=== PATIENT | female | born 1945 | race Caucasian/White ===

== ENCOUNTER 2016-07-18 07:35 | Observation (INO) ==
--- NOTE | 2016-07-18 07:43 | Emergency Department Note ---
Disposition Clinical Impression: Fracture of ankle, trimalleolar, left, closed Qualifiers: Encounter type: initial encounter Qualified Code(s): S82.852A - Displaced trimalleolar fracture of left lower leg, initial encounter for closed fracture Disposition: Admitted As Inpatient Condition: Fair Referrals: Aj Crane MD [Primary Care Provider] - Forms: ED Satisfaction Letter Time of Disposition: 09:08 Lower Extremity Injury HPI - General Chief Complaint: ED Fall Stated Complaint: Fall, Left Ankle Injury Source: patient Mode of arrival: EMS Limitations: no limitations - History of Present Illness HPI Narrative: 71-year-old alert and oriented female presents to emergency department with a chief complaint of left ankle injury. The patient states that just prior to arrival, she was walking to the house with her cup of coffee when she began to experience a "hot flash" and became "dizzy". The patient states that her ankle rolled in a lateral fashion and she fell to the floor. She was unable to bear weight immediately after the injury. The patient states that she has had these hot flashes/dizzy spells for many years. She states that this is not a new occurrence. She denies any other injury from the fall. She denies any LOC, nausea, vomiting, head injury. The patient arrives via EMS with a cardboard/ foam splint applied to the left lower extremity. 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 Mechanism of Injury: eversion Context: fall Place: home Pain Severity: moderate Pain Scale: 6 Improves with: nothing Worsens with: weight bearing, movement, palpation Associated symptoms: Reports: unable to bear weight, swelling Treatments prior to arrival: splint (Per EMS) - Related Data Home Medications Medication Instructions Recorded Confirmed Ascorbate Calcium [Vitamin C] 500 mg PO DAILY 07/17/16 07/18/16 Aspirin 81 mg PO DAILY 07/17/16 07/18/16 Calcium Carbonate/Vitamin D3 1 each PO DAILY 07/17/16 07/18/16 [Calcium 500-Vit D3 600 Tablet] Cholecalciferol (Vitamin D3) 1,000 unit PO BID 07/17/16 07/18/16 [Vitamin D] Cyanocobalamin (Vitamin B-12) 1,000 mcg PO DAILY 07/17/16 07/18/16 [Vitamin B12] Folic Acid 1 mg PO DAILY 07/17/16 07/18/16 Glucosamine/Chondroitin A/MSM 1 each PO TID 07/17/16 07/18/16 [Gsruaucveau-Idlahkuqn-WBK Cap] Ibuprofen [Advil] 400 mg PO Q6H PRN 07/17/16 07/18/16 Levothyroxine [Synthroid] 75 mcg PO QAM 07/17/16 07/18/16 Losartan/HCTZ [Hyzaar 50-12.5 1 each PO DAILY 07/17/16 07/18/16 Tablet] Methotrexate [Otrexup] 7.5 mg PO QWEEK 07/17/16 07/18/16 [place]-3/Dha/Epa/Fish Oil [[place]-3 1,000 mg PO DAILY 07/17/16 07/18/16 Fish Oil 1,000 mg Sfgl] Previous Rx's Medication Instructions Recorded OxyCODONE/APAP 5/325 [Percocet 2 each PO Q6HR PRN #20 tablet 07/17/16 5/325 MG] Allergies Allergy/AdvReac Type Severity Reaction Status Date / Time No Known Allergies Allergy Verified 07/17/16 14:13 All systems ED: reviewed and negative except as stated. Cardiovascular: Denies: chest pain, palpitations, dyspnea on exertion, edema, syncope Respiratory: Denies: cough, dyspnea, wheezes, hemoptysis, stridor Gastrointestinal: Denies: abdominal pain, nausea, vomiting, diarrhea, constipation, hematemesis, melena, hematochezia Musculoskeletal: Reports: as per HPI, joint swelling (left Ankle), arthralgia ( Left ankle) Neurological: Reports: as per HPI, other (Dizziness associated with a hot flash) . Denies: headache, weakness, numbness, paresthesias, confusion, abnormal gait , vertigo Endocrine: Denies: fatigue Hematological/Lymphatic: Denies: easy bleeding, easy bruising Past Medical History - Past Medical History Attestation: Yes The following information was validated with the patient. Source: patient Medical history: Reports: hypertension, thyroid disease Psychiatric history: Reports: no psych history - Social History Smoking Status: Current every day smoker Smokeless Tobacco Status: No Alcohol use: Reports: none Drug use: Reports: none Physical Exam - General Limitations: no limitations General appearance: alert, in no apparent distress - Head Head exam: atraumatic, normocephalic, normal inspection - Eye Eye exam: Present: normal appearance, PERRL, EOMI. Absent: nystagmus - Expanded Eye Exam Pupils: Bilateral: regular, round, reactive, size (2) - ENT ENT exam: mucous membranes moist - Neck Neck exam: Present: normal inspection, full ROM, trachea midline. Absent: tenderness - Chest Chest inspection: Present: normal inspection, symmetric chest wall rise - Respiratory Respiratory exam: Present: normal lung sounds bilaterally. Absent: respiratory distress, wheezes, stridor, accessory muscle use, prolonged expiratory phase - Cardiovascular Cardiovascular exam: Present: regular rate, normal rhythm, normal heart sounds - Abdominal Exam Abdominal exam: Present: soft, Non-Tender, normal bowel sounds. Absent: tenderness, distention, guarding, rebound, rigidity - Expanded Lower Extremity Exam Hip/Pelvis exam: Present: normal inspection, full ROM Upper leg exam: Present: normal inspection, full ROM Knee exam: Present: normal inspection, full ROM Lower leg exam: Present: normal inspection, full ROM, tenderness (Tenderness over the proximal and medial aspect of the left tibia just inferior to the knee) , Achilles tendon intact. Absent: swelling, abrasion, laceration, ecchymosis, deformity, crepitus, dislocation, erythema, palpable cord, Homans' sign Ankle exam: Present: tenderness (Tenderness to palpation over the area of the medial malleolus, left ankle), swelling (Moderate amount of swelling noted overlying the area of the medial malleolus, left ankle), ecchymosis (Moderate amount of ecchymosis overlying the area of the medial malleolus of the left ankle). Absent: full ROM (Range of motion limited by pain), abrasion, laceration, deformity, crepitus, dislocation, erythema, tenderness over talofibular lig Foot/toe exam: Present: normal inspection, full ROM. Absent: tenderness, swelling, abrasion, laceration, ecchymosis, deformity, crepitus, dislocation, erythema, calcaneal tenderness, tenderness at base of 5th metatarsal Neurovascular/Tendon exam: Present: normal 2-point discrimination, significant pain with passive ROM of distal joint. Absent: pulse deficit, motor deficit, sensory deficit, tendon deficit, extremity cold to touch, pallor, foot drop Gait: not tested/not observed, unable to bear weight - Back Exam Back exam: Present: normal inspection, full ROM. Absent: tenderness - Neurological Exam Neurological exam: Present: alert, oriented X3 - Expanded Neurological Exam Coma Scale Eye Opening: Spontaneous Coma Scale Motor Response: Obeys Commands Coma Scale Verbal Response: Oriented Coma Scale Total: 15 - Psychiatric Psychiatric exam: Present: normal affect, normal mood - Skin Skin exam: Present: warm, dry, intact, normal color. Absent: rash, cyanosis, diaphoresis, erythema, pallor, mottled Course Course Narrative: At this time, x-ray imaging of the left tib-fib, left ankle, and left foot are pending. 0849: I spoke with Dr. Medellin, cardiovascular invasive specialist on-call. Dr. Medellin states that he will contact Dr. helms and have Dr. helms come see the patient personally in the emergency department. 0900: I removed the patient's rapid Rhino that was placed here in the emergency department yesterday afternoon. No complications. No bleeding. Patient tolerated well. 0907: Dr. helms return phone call. Dr. helms accepts the patient for admission under his service. Case discussed with Dr. Almanza. Dr. Almanza has had a [id number] evaluation with the patient and is in agreement with the above plan. - Reevaluation(s) Reevaluation #1: When questioned about the patient's hot flash/dizzy episode that led to this fall, the patient states that this is not out of the ordinary for her in that she has been having these episodes for several years. She denies any palpitations or visual disturbances. She denies any chest pain, shortness of breath either now or at the time of her fall. Time: 08:44 Vital Signs Temperature 97.4 F L 07/18/16 07:35 Pulse Rate 78 07/18/16 07:35 Respiratory Rate 18 07/18/16 07:35 Blood Pressure 137/76 07/18/16 07:35 O2 Sat by Pulse Oximetry 93 L 07/18/16 07:35 Temperature 97.4 F L 07/18/16 07:35 Pulse Rate 71 07/18/16 08:23 Respiratory Rate 18 07/18/16 08:23 Blood Pressure 149/71 07/18/16 08:23 O2 Sat by Pulse Oximetry 93 L 07/18/16 08:23 Oxygen Delivery Oxygen Delivery Room Air Extremity Injury, Lower - Medical Records Medical records reviewed: Yes I reviewed the patient's medical records. - Radiology Data Radiology results reviewed: Yes I reviewed the patient's radiology results. - EKG Data EKG attestation: Yes I reviewed and interpreted this EKG. EKG results narrative: EKG reviewed by Dr. Almanza. EKG shows sinus rhythm at a rate of 73 bpm. Nonspecific T-wave abnormalities. No STEMI. Attestation Statement - Attestation Attestation: I examined this patient and my medical decision-making was reviewed with the DIESEL ENGINE ERECTOR/PA/Advanced Practice Nurse/Resident Physician. I agree with the documented findings, disposition and treatment plan as described except to the extent set forth below. Patient emergency department with an ankle fracture. Patient had a fall at home. On examination she has swelling and ecchymosis to the left ankle. Neurovascularly intact distally with good DP and PT pulses. Plan. Patient was trimalleolar fracture. Admitted to podiatry.
[2016-07-18] MEDS ORDERED: *HR* Morphine 2 MG/ML SYRINGE SQ ONE (08:09)
[2016-07-18] MEDS ORDERED: *HR* FentaNYL (PF) 100 MCG/2 ML VIAL IVP ONE (09:11)
[2016-07-18 09:40] LABS: Basophils # 0.1 K/mcL (0.0-0.2); Basophils % 0.4 %; Eosinophils % 0.3 %; Hematocrit 41.7 % (35.3-44.9); Hemoglobin 13.7 g/dL (11.5-15.4); Immature Granulocytes % 0.5 % (0-4); Lymphocytes # 2.3 K/mcL (0.6-4.6); Lymphocytes % 15.4 %; Mean Corpuscular HGB Conc 32.9 g/dL (31.6-35.5); Mean Corpuscular Hemoglobin 30.4 pg (28.0-33.3); Mean Corpuscular Volume 92.7 fL (83.0-100.0); Mean Platelet Volume 9.8 fL (9.4-12.4); Monocytes # 0.7 K/mcL (0.0-1.3); Monocytes % 4.7 %; Neutrophils # 11.6 K/mcL (1.6-8.9); Platelet Count 292 K/mcL (140-400); Red Cell Distribution Width 13.4 % (11.5-14.5); Segmented Neutrophils % 78.7 %
[2016-07-18 09:43] LABS: INR 1.1; Prothrombin Time 11.5 Seconds (9.4-12.1)
[2016-07-18 09:46] LABS: Activated Partial Thrombo Time 31.4 Seconds (26.0-36.0)
[2016-07-18 09:51] LABS: BUN/Creatinine Ratio 21 (6-26); Blood Urea Nitrogen 16 mg/dL (7-20); Calcium 9.5 mg/dL (8.6-10.8); Carbon Dioxide 21 mEq/L (19-29); Chloride 107 mEq/L (98-109); Glucose 112 mg/dL (70-99); Osmolality,Calculated 290 (280-300); Potassium 4.1 mEq/L (3.5-4.5); Sodium 139 mEq/L (136-145); eGFR For African Americans > 60 (> 60); eGFR For Non-African Americans > 60 (> 60)
[2016-07-18] MEDS ORDERED: *HR* HYDROmorphone 2 MG/ML SYRINGE ONE (14:50)
[2016-07-18] MEDS: *HR* HYDROmorphone 2 MG/ML SYRINGE IVP PRN (14:52)
[2016-07-18] MEDS ORDERED: Bupivacaine/Clonidine Syringe 1 EACH SYRINGE ONE (15:53)
--- NOTE | 2016-07-18 16:03 | Podiatry History & Physical ---
History of Present Illness Chief complaint: ankle fracture HPI: Ms. Capellan is a 71 year old female who relates that she recently injured her ankle and has significant pain. Patient relates that she has hypertension and denies any other problems. All Systems Reviewed: A 10-system review of systems was performed and is negative for pertinent findings except as documented above in the HPI. Past Med Surg Social Fam HX - Past Medical History Medical history: hypertension, thyroid disease Psychiatric history: no psych history - Social History Smoking Status: Current every day smoker Smokeless Tobacco Status: No Alcohol use: none Drug use: none Medications and Allergies Ascorbate Calcium [Vitamin C] 500 mg PO DAILY 07/17/16 [History] Aspirin 81 mg PO DAILY 07/17/16 [History] Calcium Carbonate/Vitamin D3 [Calcium 500-Vit D3 600 Tablet] 1 each PO DAILY [History] Cholecalciferol (Vitamin D3) [Vitamin D] 1,000 unit PO BID 07/17/16 [History] Cyanocobalamin (Vitamin B-12) [Vitamin B12] 1,000 mcg PO DAILY 07/17/16 [History ] Folic Acid 1 mg PO DAILY 07/17/16 [History] Glucosamine/Chondroitin A/MSM [Mkvupnkonzv-Enmxnaxch-JTE Cap] 1 each PO TID [History] Ibuprofen [Advil] 400 mg PO Q6H PRN 07/17/16 [History] Levothyroxine [Synthroid] 75 mcg PO QAM 07/17/16 [History] Losartan/HCTZ [Hyzaar 50-12.5 Tablet] 1 each PO DAILY 07/17/16 [History] Methotrexate [Otrexup] 7.5 mg PO QWEEK 07/17/16 [History] [place]-3/Dha/Epa/Fish Oil [[place]-3 Fish Oil 1,000 mg Sfgl] 1,000 mg PO DAILY [History] OxyCODONE/APAP 5/325 [Percocet 5/325 MG] 2 each PO Q6HR PRN #20 tablet 07/17/16 [Rx] Allergies No Known Allergies Allergy (Verified 07/17/16 14:13) Physical Exam - Constitutional Vitals: Temp Pulse Resp BP Pulse Ox 98.9 F 72 16 114/62 90 L 07/18/16 15:03 07/18/16 15:03 07/18/16 15:03 07/18/16 15:03 07/18/16 11:56 Exam: Neurovascular status intact, no open lesions, pain with range of motion to the ankle, Radiographs demonstrate an ankle fracture. No drainage out of the eyes ears or thoat. Normal rate and rythm and lungs clear to auscultation. Results - Labs Result Diagrams: 07/18/16 09:29 07/18/16 09:29 Labs: Abnormal lab results WBC 14.7 K/mcL (4.3-11.1) H D 07/18/16 09:29 Neutrophils # 11.6 K/mcL (1.6-8.9) H 07/18/16 09:29 Glucose 112 mg/dL (70-99) H 07/18/16 09:29 All other labs normal. Assessment and Plan (1) Fracture of ankle, trimalleolar, left, closed Current visit: Yes Status: Acute Patient was instructed that she will be needing an open reduction, internal fixation of the left ankle fracture. Patient was informed of the risks and complications of surgery. These may include but are not limited to the following ; nerve damage, numbness, tingling, RSD/CRPS, loss of motor function, loss of toe, loss of limb, loss of life, ischemia, wound healing issues, infection, scarring, keloid formation, continued pain, arthritis, non-union, mal-union, prominent hardware, displaced hardware, reaction to hardware, the need to remove hardware, bruising, continued limp, the need for future surgery, over correction, under correction, chronic swelling, the need for physical therapy, stiffness of joints, ulceration, slow healing, wound dehiscence, reaction to implant, reaction to sutures. The patient was informed of the possible conservative treatments available which may include but are not limited to the following: Orthotics, bracing, non -weight bearing, physical therapy, padding, taping, steroid injections, NSAIDS, casting. The patient was given the option to seek a second opinion. It was explained that surgery is an art and not an exact science therefore results cannot be guaranteed. All the patients questions and concerns were addressed. Patient agrees to have the surgery despite the possible risks and complications. Absolutely no guarantees were given or implied. Qualifiers: Encounter type: subsequent encounter Fracture healing: with routine healing Qualified Code(s): S82.852D - Displaced trimalleolar fracture of left lower leg, subsequent encounter for closed fracture with routine healing
[2016-07-18] MEDS ORDERED: ROPIVACAINE HCL/PF 0.5% 30 ML VIAL ONE (16:24)
[2016-07-18] MEDS ORDERED: *HR* Midazolam HCl 2 MG/2 ML VIAL ONE (16:28)
[2016-07-18] MEDS ORDERED: *HR* FentaNYL (PF) 100 MCG/2 ML VIAL ONE (16:28)
[2016-07-18] MEDS ORDERED: Lidocaine -MPF 2% 2 ML VIAL ONE ×2 (16:29→17:30)
--- NOTE | 2016-07-18 16:36 | Anesthesia Evaluation PreOp ---
Date of Encounter: 07/18/16 Time of Encounter: 16:33 - Past History Planned Operation: ORIF L Trimalleolar ankle fracture Cardiac History: HTN Pulmonary History: Smoker, COPD RADIO BROADCASTER History: Denies Any Significant HX Other Medical History: Thyroid Anesthesia History: No Prior Anesthetic Complications Alcohol Use: none Drug use: none Medications and Allergies Ascorbate Calcium [Vitamin C] 500 mg PO DAILY 07/17/16 [History] Aspirin 81 mg PO DAILY 07/17/16 [History] Calcium Carbonate/Vitamin D3 [Calcium 500-Vit D3 600 Tablet] 1 each PO DAILY [History] Cholecalciferol (Vitamin D3) [Vitamin D] 1,000 unit PO BID 07/17/16 [History] Cyanocobalamin (Vitamin B-12) [Vitamin B12] 1,000 mcg PO DAILY 07/17/16 [History ] Folic Acid 1 mg PO DAILY 07/17/16 [History] Glucosamine/Chondroitin A/MSM [Dhnhevimhuf-Qddmruisc-FDS Cap] 1 each PO TID [History] Ibuprofen [Advil] 400 mg PO Q6H PRN 07/17/16 [History] Levothyroxine [Synthroid] 75 mcg PO QAM 07/17/16 [History] Losartan/HCTZ [Hyzaar 50-12.5 Tablet] 1 each PO DAILY 07/17/16 [History] Methotrexate [Otrexup] 7.5 mg PO QWEEK 07/17/16 [History] [place]-3/Dha/Epa/Fish Oil [[place]-3 Fish Oil 1,000 mg Sfgl] 1,000 mg PO DAILY [History] OxyCODONE/APAP 5/325 [Percocet 5/325 MG] 2 each PO Q6HR PRN #20 tablet 07/17/16 [Rx] Allergies No Known Allergies Allergy (Verified 07/17/16 14:13) - Meds/Allergy Pre-op Review Medications Reviewed: Yes Allergies Reviewed: Yes Beta Blockers on Current Med List: No Anesthesia Results - Labs 07/18/16 09:29 07/18/16 09:29 - Imaging EKG: report reviewed, image reviewed (SR; nonspecific T wave abnormality) Anesthesia Exam Last Vital Signs Temp 98.9 F 07/18/16 15:03 Pulse 72 07/18/16 15:03 Resp 16 07/18/16 15:03 BP 114/62 07/18/16 15:03 Pulse Ox 90 L 07/18/16 11:56 Weight: 80 kg NPO (# of Hours): >> 8 hrs - HEENT Pupil (Motor): Pupils equal, EOMI Mallampati: III Teeth: Missing, Poor dentition Oral Opening: Greater than 3 - RADIO BROADCASTER LOC: Oriented - Cardiac Rhythm: Regular Murmur: Systolic (low grade KOTA) - Pulmonary Breath Sounds: bilateral Clear Respiratory Effort: Symmetrical Anesthesia Assess/Plan ASA Score: 3 Modified Manoj Scale for Level of Consciousness: Cooperative, oriented, and tranquil Anesthetic Plan: General, Regional Monitoring Plan: Standard Monitors Recovery Plan: PACU
--- NOTE | 2016-07-18 17:02 | Anesthesia Procedures ---
Date of Encounter: 07/18/16 Time of Encounter: 16:50 Procedures: Anesthesia - Nerve Block Procedure Date: 07/18/16 Time: 16:50 Allergies/Adv Reactions: nka Pre-op Diagnosis: left ankle fx Surgical Procedure: left ankle orif Checklist: Correct Patient Identifier, Correct procedure, History checked Correct side: Left Blood Thinner: No Monitor Applied: EKG, BP, Pulse Oximetry Supplemental Oxygen via Nasal Cannula (L/min): 4 Sedation: Fentanyl (mcg): 50 Indication: Post Op Analgesia Pre-op Neuro Deficits: No Block Type: Popliteal (40mL ropi + decadron), Other (Adductor Canal 20mL bupivacaine + decadron) Catheter placed: No Sterile Technique: Yes Ultrasound used: Yes Anatomy identified: Yes Visual spread of Local: Yes Neuro Stimulation: Yes Nerve Stimulator Range: 0.2 - 0.4 mA Blood on Needle Aspiration: No Smooth Injection of Local: Yes Pain with Injection of Local: No Prep: Chlorhexadine Needle: 21 x 100 mm Stimuplex Local: Ropivacaine (30mL 0.5% + 10mg Decadron), Other (30mL 0.5% bupivacaine + 10mg Decadron) Volume (cc): 60 Number of Attempts: 1 Complications: None/effective block Vitals: BP 144/68, HR 80, RR 14, SpO2 94%
[2016-07-18] MEDS ORDERED: *HR* Phenylephrine 10 MG/ML VIAL ONE (17:30)
[2016-07-18] MEDS ORDERED: Ondansetron 4 MG/2 ML VIAL ONE (17:30)
[2016-07-18] MEDS ORDERED: Dexamethasone 4 MG/ML VIAL ONE (17:30)
[2016-07-18] MEDS ORDERED: *HR* Propofol 200 MG/20 ML VIAL IVP ONE (17:30)
[2016-07-18] MEDS ORDERED: EPHEDrine 50 MG/ML VIAL ONE (17:40)
[2016-07-18] MEDS ORDERED: *HR* Vasopressin 20 UNIT/ML VIAL ONE (17:43)
[2016-07-18] MEDS ORDERED: Albumin Human 5% 25.0 GM/500 ML VIAL ONE (17:43)
[2016-07-18] MEDS ORDERED: *HR* HYDROmorphone (PF) 1 MG/ML SYRINGE IVP PRN (18:46)
--- NOTE | 2016-07-18 19:07 | Anesthesia Evaluation Post Op ---
Date of Encounter: 07/18/16 Time of Encounter: 19:06 - Vital Signs Vital Signs: Last Vital Signs Temp 97.0 F L 07/18/16 18:34 Pulse 85 07/18/16 18:54 Resp 16 07/18/16 18:54 BP 108/45 07/18/16 18:54 Pulse Ox 97 07/18/16 18:54 - Lungs Lungs: Clear Ascult./Percussion - Airway Airway: Non-obstructed - Cardiovascular Regular Rate - Mental Status Mental Status: Alert & Oriented, Answers Appropriately - Pain Pain Scale: 2 - Nausea Vomiting Nausea Vomiting: Not Present - Hydration Hydration: NPO - Discharge PostOp Status: Transfer Patient to floor
[2016-07-18] MEDS ORDERED: *HR* Methotrexate 2.5 MG TABLET PO SCH (21:00)
[2016-07-18] MEDS: Nicotine 21 MG PATCH.TD24 TD SCH (21:22)
--- NOTE | 2016-07-18 21:36 | Operative Note ---
Date of procedure: 07/18/16 Pre-op diagnosis: Trimalleolar ankle fracture with subluxation, left Post-op diagnosis: same Procedure: Open reduction, internal fixation of left trimalleolar ankle fracture(fixation of medial and lateral malleolus), open repair of syndesmosis. Implants: Chris plates and screws Complications: none Anesthesia: ARELI Surgeon: Jamaal Peraza Estimated blood loss (cc): 5 Specimen: none Condition: stable Disposition: PACU Procedure in Detail: Patient was transported to the operative room and placed on the operative table in the supine position. After general anesthesia the foot was scrubbed prepped and draped in the usual aseptic fashion. A timeout was performed and the foot/ ankle was exsanguinated and the tourniquet was inflated. An incision was made over the lateral distal fibula and deepened to the fibula. The fracture was identified and reduced with a lobster claw. There were multiple small fragments noted and were pinned in place while a plate was applied. The plate was noted to adequately stabilize the site. The attention was directed to the medial ankle and an incision was made distal to the medial malleolus. The medial malleolus was stabilized with 2 kwires. Two cannulated screws were inserted stabilizing the medial malleolus. After the medial malleolus was adequately fixated the attention was then directed to the lateral aspect of the ankle. The syndesmosis was tested and noted to be insufficient. A syndesmotic screw was utilized to fixate the syndesmosis and the syndesmotic ligament was repaired. Final confirmation fluoroscopy was obtained. The sites were irrigated with copious amounts of normal saline and closed in layered fashion. A posterior splint and dressings were applied. The patient tolerated the procedure well and was transported to the recovery room with vital signs stable and vascular status intact to both feet. The patient will remain nonweightbearing.
[2016-07-19] MEDS: Losartan/HCTZ 50-12.5 TABLET PO SCH (09:15)
[2016-07-19] MEDS: Nicotine 21 MG PATCH.TD24 TD SCH (09:15)
[2016-07-19] MEDS: Ascorbic Acid 500 MG TABLET PO SCH (09:15)
[2016-07-19] MEDS: Folic Acid 1 MG TABLET PO SCH (09:15)
[2016-07-19] MEDS: Cholecalciferol (D-3) 1,000 UNIT TABLET PO SCH (09:15)
[2016-07-19] MEDS: Cyanocobalamin (B-12) 1,000 MCG TABLET PO SCH (09:15)
[2016-07-19] MEDS ORDERED: ceFAZolin 2,000 MG in D5% in Water 100 ML IVPB ONE (13:03)
--- NOTE | 2016-07-19 16:01 | Electrocardiograph Report ---
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
--- NOTE | 2016-07-19 18:56 | Podiatry Progress Note ---
Date of Encounter: 07/19/16 Time of Encounter: 12:52 - Assessment and Plan (1) Fracture of ankle, trimalleolar, left, closed Current Visit: Yes Status: Acute Due to the physical therapy recommendations we will keep the patient until we are able to establish safe guidelines for her to return home. Patient will remain nonweightbearing. Patient will ice and elevate. At this time we also spoke with the perinatal social worker who feels as though it will be necessary to set up home care and additional assistance prior to discharge. Qualifiers: Encounter type: subsequent encounter Fracture healing: with routine healing Qualified Code(s): S82.852D - Displaced trimalleolar fracture of left lower leg, subsequent encounter for closed fracture with routine healing Subjective Principal diagnosis: Ankle fracture Interval history: Patient relates that she is feeling much more comfortable today than yesterday. Patient relates significant improvement. Patient denies any nausea, vomiting , fever, chills, shortness of breath, chest pain, or calf pain. Objective - Vital Signs Vital Signs: Vital Signs Temp Pulse Resp BP Pulse Ox 07/19/16 15:22 98.7 F 76 18 148/74 93 L 07/19/16 11:06 97.9 F 82 18 144/58 93 L 07/19/16 06:50 98.6 F 87 18 164/73 93 L 07/19/16 04:00 97.8 F 92 16 161/71 92 L 07/19/16 00:00 98.0 F 93 17 132/72 92 L 07/18/16 22:26 98.4 F 91 17 140/61 93 L 07/18/16 21:20 97.6 F 94 16 136/59 90 L 07/18/16 20:08 96.6 F L 84 16 142/58 93 L 07/18/16 20:07 96.6 F L 07/18/16 19:48 85 16 126/71 94 L 07/18/16 19:16 97.5 F L 91 14 140/62 91 L 07/18/16 19:04 97.2 F L 83 18 112/48 95 07/18/16 18:54 85 16 108/45 97 Intake and Output 07/19/16 07/19/16 07/19/16 07:59 15:59 23:59 Intake Total 250 / 250 660 / 660 Output Total 750 / 750 Balance -500 / -500 660 / 660 Intake: IV Fluids 100 / 100 Ancef 2,000 MG In 100 / 100 Dextrose 5% 100 ML @ 200 mls/hr IVPB ONCE ONE Rx#: [id number] Oral 250 / 250 560 / 560 Output: Urine 750 / 750 Other: Meal Lunch Percent of Meal Consumed 85% # Voids 1 - Exam Exam: The splint is intact. There is no noted strikethrough. Patient is able to dorsiflex and plantarflex digits. Patient has decreased sensation likely secondary to the nerve block received yesterday. Capillary fill time is intact to the digits. No pain with manual calf compression. - Lab Result Diagrams: 07/18/16 09:29 07/18/16 09:29 Labs: Abnormal lab results WBC 14.7 K/mcL (4.3-11.1) H D 07/18/16 09:29 Neutrophils # 11.6 K/mcL (1.6-8.9) H 07/18/16 09:29 Glucose 112 mg/dL (70-99) H 07/18/16 09:29 - VTE Documentation of Mechanical Device: Venous foot pump, device Consult Discharge Plan - Plan Referrals: Aj Crane MD [Primary Care Provider] -
[2016-07-19] MEDS: *HR* Enoxaparin 40 MG/0.4 ML SYRINGE SQ SCH (20:48)
[2016-07-20] MEDS: *HR* OxyCODONE/APAP 5/325 TABLET PO PRN ×4 (01:02→22:22)
[2016-07-20] MEDS: Losartan/HCTZ 50-12.5 TABLET PO SCH (09:22)
[2016-07-20] MEDS: Nicotine 21 MG PATCH.TD24 TD SCH (09:22)
[2016-07-20] MEDS: Cyanocobalamin (B-12) 1,000 MCG TABLET PO SCH (09:22)
[2016-07-20] MEDS: Ascorbic Acid 500 MG TABLET PO SCH (09:22)
[2016-07-20] MEDS: Cholecalciferol (D-3) 1,000 UNIT TABLET PO SCH (09:22)
[2016-07-20] MEDS: Folic Acid 1 MG TABLET PO SCH (09:22)
[2016-07-20] MEDS: *HR* Enoxaparin 40 MG/0.4 ML SYRINGE SQ SCH (17:32)
[2016-07-21] MEDS: *HR* OxyCODONE/APAP 5/325 TABLET PO PRN ×2 (04:25→12:32)
[2016-07-21] MEDS: Folic Acid 1 MG TABLET PO SCH (09:45)
[2016-07-21] MEDS: Cholecalciferol (D-3) 1,000 UNIT TABLET PO SCH (09:45)
[2016-07-21] MEDS: Losartan/HCTZ 50-12.5 TABLET PO SCH (09:45)
[2016-07-21] MEDS: Nicotine 21 MG PATCH.TD24 TD SCH (09:45)
[2016-07-21] MEDS: Ascorbic Acid 500 MG TABLET PO SCH (09:45)
[2016-07-21] MEDS: Cyanocobalamin (B-12) 1,000 MCG TABLET PO SCH (09:45)
[2016-07-21] MEDS: *HR* HYDROmorphone 2 MG/ML SYRINGE IVP PRN (09:51)
[2016-07-21 11:28] VITALS: BP 114/63
--- NOTE | 2016-07-21 13:54 | Podiatry Progress Note ---
Date of Encounter: 07/20/16 Time of Encounter: 13:53 - Assessment and Plan (1) Fracture of ankle, trimalleolar, left, closed Current Visit: Yes Status: Acute Due to the physical therapy recommendations we will keep the patient until we are able to establish safe guidelines for her to return home. Patient will remain nonweightbearing. Patient will ice and elevate. At this time we also spoke with the healthcare social worker who feels as though it will be necessary to set up home care and additional assistance prior to discharge. Qualifiers: Encounter type: subsequent encounter Fracture healing: with routine healing Qualified Code(s): S82.852D - Displaced trimalleolar fracture of left lower leg, subsequent encounter for closed fracture with routine healing Subjective Principal diagnosis: Ankle fracture Interval history: Patient relates that she is feeling much more comfortable today than yesterday. Patient relates significant improvement. Patient denies any nausea, vomiting , fever, chills, shortness of breath, chest pain, or calf pain. Objective - Vital Signs Vital Signs: Vital Signs Temp Pulse Resp BP Pulse Ox 07/21/16 11:07 98.5 F 78 16 114/63 96 07/21/16 06:36 98.1 F 76 18 134/58 96 07/21/16 00:12 97.9 F 80 15 132/52 95 07/20/16 20:42 98.2 F 71 14 149/68 92 L 07/20/16 15:23 98.1 F 69 16 142/58 93 L Intake and Output 07/20/16 07/21/16 07/21/16 23:59 07:59 15:59 Output Total 300 / 300 Balance -300 / -300 Output: Urine 300 / 300 Other: # Voids 1 - Exam Exam: Posterior splint intact, CFT intact to the digits, Sensation intact to digits, no strikethrough. - Lab Result Diagrams: 07/18/16 09:29 07/18/16 09:29 Labs: Abnormal lab results WBC 14.7 K/mcL (4.3-11.1) H D 07/18/16 09:29 Neutrophils # 11.6 K/mcL (1.6-8.9) H 07/18/16 09:29 Glucose 112 mg/dL (70-99) H 07/18/16 09:29 - VTE Documentation of Mechanical Device: Venous foot pump, device Consult Discharge Plan - Plan Referrals: Aj Crane MD [Primary Care Provider] -
--- NOTE | 2016-07-21 13:59 | Discharge Summary ---
Date of Encounter: 07/21/16 Time of Encounter: 13:54 - Discharge Diagnosis (1) Fracture of ankle, trimalleolar, left, closed Priority: Primary Status: Acute Qualifiers: Encounter type: subsequent encounter Fracture healing: with routine healing Qualified Code(s): S82.852D - Displaced trimalleolar fracture of left lower leg, subsequent encounter for closed fracture with routine healing - Discharge Medications Prescriptions: Oxycodone HCl/Acetaminophen [Percocet 10-325 mg Tablet] 1 each PO Q4-6H PRN #28 tablet PRN Reason: Pain Rivaroxaban [Xarelto] 10 mg PO DAILY #21 tablet Home Medications: Ascorbate Calcium [Vitamin C] 500 mg PO DAILY 07/17/16 [History] Calcium Carbonate/Vitamin D3 [Calcium 500-Vit D3 600 Tablet] 1 each PO DAILY [History] Cholecalciferol (Vitamin D3) [Vitamin D3] 1,000 unit PO BID 07/17/16 [History] Cyanocobalamin (Vitamin B-12) [Vitamin B12] 1,000 mcg PO DAILY 07/17/16 [History ] Folic Acid 1 mg PO DAILY 07/17/16 [History] Glucosamine/Chondroitin A/MSM [Erflgczjmmw-Mrxckliyf-XKD Cap] 1 each PO TID [History] Levothyroxine [Synthroid] 75 mcg PO QAM 07/17/16 [History] Losartan/HCTZ [Hyzaar 50-12.5 Tablet] 1 each PO DAILY 07/17/16 [History] Methotrexate [Otrexup] 7.5 mg PO QWEEK 07/17/16 [History] [place]-3/Dha/Epa/Fish Oil [[place]-3 Fish Oil 1,000 mg Sfgl] 1,000 mg PO DAILY [History] Oxycodone HCl/Acetaminophen [Percocet 10-325 mg Tablet] 1 each PO Q4-6H PRN #28 tablet 07/21/16 [Rx] Rivaroxaban [Xarelto] 10 mg PO DAILY #21 tablet 07/21/16 [Rx] Allergies/Adverse Reactions: Allergies No Known Allergies Allergy (Verified 07/17/16 14:13) Procedures and tests throughout hospitalization: Operative reduction, internal fixation of the left ankle fracture. - Impressions ITS Impressions Fluoroscopy 07/18/16 17:30 IMPRESSION: Intraprocedural fluoroscopic spot images as above. See separate procedure report for more information. D/ / Vinnie Quick MD / Vinnie Quick MD Interpreting Provider: Vinnie Quick MD Date of admission: 07/18/16 09:40 Primary care physician: Aj Crane MD Consults: 07/19/16 08:10 Consult to Occupational Therapy [CONS] Routine Comment: Evaluate, develop and implement POC Consult to Physical Therapy [CONS] Routine Comment: Evaluate, develop and implement POC Consult to Personal Investment Adviser [CONS] Routine Reason for SW Consult: discharge planning Discharging clinician: Jamaal Peraza Anticipated date of discharge: 07/21/16 - Patient Status Disposition: Home Health Service Condition: Good Functional capacity at discharge: uses cane/walker Overall status at discharge: patient is progressing back to baseline - Discharge Instructions Follow Up With: Aj Crane MD [Primary Care Provider] - Additional Instructions: Remain nonweightbearing. Keep the dressings clean dry and intact. Ice and elevate. Follow-up in one week after discharge. - Diet and Activity Activity: ambulate only with your walker Diet: advance to your usual diet - Hospital Course Hospital course: Ms. Capellan is a 71 year old female ho presented to observation and open reduction, internal fixation was performed to her left ankle. The patient has been recovering well but after a therapy visit it was determined that she would need additional assistance prior to returning home. The patient has been improving and exhibits increased ability to return home safely. The patient also relates that she will have people assisting her 24 hours a day until additional home care can be established. The patient relates that she feels safe to return home. - Time Spent with Patient Total time spent providing and/or coordinating discharge services: Less than 30 minutes - VTE Documentation of Mechanical Device: Venous foot pump, device
--- NOTE | 2016-07-21 14:05 | Physician Discharge Referral ---
Home Health/Hosp Referral Info Transfer to: Home Health Attending Provider: Sessions Provider in Charge Post Discharge: Other - Diagnosis (1) Fracture of ankle, trimalleolar, left, closed Status: Acute - Respiratory Orders Smoking Cessation: Smoking cessation has been advised. For more information, call the [place] Tobacco Quit Line at 5-876-TOUL-NOW. - Dressing/Wound Care Site: Keep dressings intact - Diet/Nutrition Diet/Nutrition Orders: Regular - Activity Activity Orders: Walker - Services Needed Following services are medically necessary services: Nursing, Physical Therapy Home Care Orders: Remain nonweightbearing. Due to knee flexion and extension exercises while at rest. Keep dressings clean dry and intact. Ice and elevate. Follow up in 1 week. - Transfer Medications Prescriptions: Oxycodone HCl/Acetaminophen [Percocet 10-325 mg Tablet] 1 each PO Q4-6H PRN #28 tablet PRN Reason: Pain Rivaroxaban [Xarelto] 10 mg PO DAILY #21 tablet Home Medications: Ascorbate Calcium [Vitamin C] 500 mg PO DAILY 07/17/16 [History] Calcium Carbonate/Vitamin D3 [Calcium 500-Vit D3 600 Tablet] 1 each PO DAILY [History] Cholecalciferol (Vitamin D3) [Vitamin D3] 1,000 unit PO BID 07/17/16 [History] Cyanocobalamin (Vitamin B-12) [Vitamin B12] 1,000 mcg PO DAILY 07/17/16 [History ] Folic Acid 1 mg PO DAILY 07/17/16 [History] Glucosamine/Chondroitin A/MSM [Lshejurqcrf-Vkukojday-TQD Cap] 1 each PO TID [History] Levothyroxine [Synthroid] 75 mcg PO QAM 07/17/16 [History] Losartan/HCTZ [Hyzaar 50-12.5 Tablet] 1 each PO DAILY 07/17/16 [History] Methotrexate [Otrexup] 7.5 mg PO QWEEK 07/17/16 [History] [place]-3/Dha/Epa/Fish Oil [[place]-3 Fish Oil 1,000 mg Sfgl] 1,000 mg PO DAILY [History] Oxycodone HCl/Acetaminophen [Percocet 10-325 mg Tablet] 1 each PO Q4-6H PRN #28 tablet 07/21/16 [Rx] Rivaroxaban [Xarelto] 10 mg PO DAILY #21 tablet 07/21/16 [Rx] Allergies/Adverse Reactions: Allergies No Known Allergies Allergy (Verified 07/17/16 14:13) Certification: Further, I certify that my clinical findings support that this patient is homebound (i.e. absences from home require considerable and taxing effort and are for medical reasons or jainism services or infrequently or short duration when for other reasons) because: Homebound Reason: Post-surgery restriction and or conditions limit ability to leave home Attestation: My signature below is to certify that this patient is under my care and that I, or nurse practitioner, or a physician's volleyball assistant coach working with me, has a face-to -face encounter with this patient.
== END 2016-07-21 15:30 | disposition home health service (06) ==
LOC: 3NENU 07:35 → EMEROO 07:35 → 3NENU 11:28
PROVIDERS: ADMIT Podiatrist Foot & Ankle Surgery; ATTEND Podiatrist Foot & Ankle Surgery

== ENCOUNTER 2019-08-15 18:14 | Inpatient (IN) ==
[2019-08-15] MEDS ORDERED: Azithromycin 500 MG in D5% in Water 250 ML IVPB ONE (19:30)
[2019-08-15] MEDS ORDERED: 0.9 % Sodium Chloride 1,000 ML IVC ONE (19:30)
[2019-08-15] MEDS ORDERED: cefTRIAXone 1,000 MG in Water for inj. (sterile) 10 ML IVP ONE (19:30)
[2019-08-15] MEDS ORDERED: methylPREDNISolone 125 MG/2 ML VIAL IVP ONE (19:31)
[2019-08-15] MEDS ORDERED: Ipratropium/Albuterol Neb 3 ML IH ONE (19:31)
[2019-08-15 19:40] LABS: Basophils # 0.1 K/mcL (0.0-0.2); Basophils % 0.9 %; Eosinophils # 0.4 K/mcL (0.0-0.6); Eosinophils % 3.2 %; Hematocrit 42.7 % (35.3-44.9); Hemoglobin 13.7 g/dL (11.5-15.4); Immature Granulocytes % 0.6 % (0-4); Lymphocytes # 2.2 K/mcL (0.6-4.6); Lymphocytes % 15.9 %; Mean Corpuscular HGB Conc 32.1 g/dL (31.6-35.5); Mean Corpuscular Hemoglobin 28.4 pg (28.0-33.3); Mean Corpuscular Volume 88.4 fL (83.0-100.0); Mean Platelet Volume 9.1 fL (9.4-12.4); Monocytes # 0.9 K/mcL (0.0-1.3); Monocytes % 6.3 %; Neutrophils # 10.2 K/mcL (1.6-8.9); Platelet Count 495 K/mcL (140-400); Red Blood Count 4.83 M/mcL (3.82-4.97); Segmented Neutrophils % 73.1 %; White Blood Count 13.9 K/mcL (4.3-11.1)
[2019-08-15 20:00] LABS: BUN/Creatinine Ratio 15 (6-26); Blood Urea Nitrogen 10 mg/dL (8-23); Calcium 9.5 mg/dL (8.6-10.3); Carbon Dioxide 25 mEq/L (23-29); Chloride 104 mEq/L (98-107); Glucose 98 mg/dL (70-105); Osmolality,Calculated 283 (280-300); Potassium 3.7 mEq/L (3.5-5.1); Sodium 137 mEq/L (136-145); eGFR For African Americans > 60 (> 60); eGFR For Non-African Americans > 60 (> 60)
[2019-08-15] MEDS ORDERED: *HR* Labetalol 20 MG/4 ML SYRINGE IVP ONE (20:26)
[2019-08-15] MEDS ORDERED: Naloxone 0.4 MG/ML INJ IVP PRN (21:55)
[2019-08-15] MEDS ORDERED: Ipratropium/Albuterol Neb 3 ML IH PRN (22:26)
[2019-08-16 05:14] LABS: Basophils % 0.4 %; Hematocrit 40.3 % (35.3-44.9); Immature Granulocytes % 0.7 % (0-4); Lymphocytes # 0.8 K/mcL (0.6-4.6); Lymphocytes % 8.5 %; Mean Corpuscular HGB Conc 32.3 g/dL (31.6-35.5); Mean Corpuscular Volume 86.7 fL (83.0-100.0); Mean Platelet Volume 9.5 fL (9.4-12.4); Monocytes # 0.1 K/mcL (0.0-1.3); Monocytes % 0.5 %; Neutrophils # 8.3 K/mcL (1.6-8.9); Platelet Count 449 K/mcL (140-400); Red Blood Count 4.65 M/mcL (3.82-4.97); Segmented Neutrophils % 89.9 %; White Blood Count 9.2 K/mcL (4.3-11.1)
[2019-08-16 05:38] LABS: BUN/Creatinine Ratio 10 (6-26); Blood Urea Nitrogen 11 mg/dL (8-23); Calcium 9.2 mg/dL (8.6-10.3); Carbon Dioxide 22 mEq/L (23-29); Chloride 105 mEq/L (98-107); Glucose 264 mg/dL (70-105); Osmolality,Calculated 299 (280-300); Potassium 3.8 mEq/L (3.5-5.1); Sodium 140 mEq/L (136-145); eGFR For African Americans > 60 (> 60); eGFR For Non-African Americans 51 (> 60)
[2019-08-16 09:04] LABS: Influenza A PCR Negative (Negative); Influenza B PCR Negative (Negative); Resp. Syncytial Virus PCR Negative (Negative)
[2019-08-16] MEDS: Azithromycin 500 MG in 0.9 % Sodium Chloride 250 ML IVPB SCH (10:13)
[2019-08-16] MEDS: cefTRIAXone 2,000 MG in Water for inj. (sterile) 20 ML IVP SCH (10:14)
[2019-08-16] MEDS: Aspirin Enteric Coated 81 MG Tablet PO SCH (10:14)
[2019-08-16] MEDS: Folic Acid 1 MG TABLET PO SCH (10:14)
[2019-08-16] MEDS: Cholecalciferol (D-3) 1,000 UNIT (25MCG) TABLET PO SCH (10:14)
[2019-08-16] MEDS: MethylPREDNISolone 40 MG/ML VIAL IVP SCH ×2 (10:25→17:20)
[2019-08-16] MEDS: *HR* Heparin 5,000 UNIT/ML VIAL SQ SCH (21:36)
[2019-08-16] MEDS ORDERED: *HR* HYDROcodone/Acet 5/325 mg TABLET PO ONE (23:27)
[2019-08-17 05:31] LABS: Basophils % 0.1 %; Hematocrit 42.7 % (35.3-44.9); Hemoglobin 13.5 g/dL (11.5-15.4); Immature Granulocytes % 0.6 % (0-4); Lymphocytes # 1.4 K/mcL (0.6-4.6); Lymphocytes % 7.4 %; Mean Corpuscular HGB Conc 31.6 g/dL (31.6-35.5); Mean Corpuscular Hemoglobin 28.1 pg (28.0-33.3); Mean Platelet Volume 9.6 fL (9.4-12.4); Monocytes # 0.7 K/mcL (0.0-1.3); Monocytes % 3.6 %; Platelet Count 463 K/mcL (140-400); Segmented Neutrophils % 88.3 %
[2019-08-17 05:32] LABS: White Blood Count 19.3 K/mcL (4.3-11.1)
[2019-08-17 05:49] LABS: BUN/Creatinine Ratio 26 (6-26); Blood Urea Nitrogen 14 mg/dL (8-23); Carbon Dioxide 24 mEq/L (23-29); Chloride 104 mEq/L (98-107); Glucose 130 mg/dL (70-105); Osmolality,Calculated 288 (280-300); Potassium 4.1 mEq/L (3.5-5.1); Sodium 138 mEq/L (136-145); eGFR For African Americans > 60 (> 60); eGFR For Non-African Americans > 60 (> 60)
[2019-08-17] MEDS: *HR* Heparin 5,000 UNIT/ML VIAL SQ SCH ×3 (06:24→20:24)
[2019-08-17] MEDS: Cholecalciferol (D-3) 1,000 UNIT (25MCG) TABLET PO SCH (09:48)
[2019-08-17] MEDS: predniSONE 20 MG TABLET PO SCH (09:48)
[2019-08-17] MEDS: Folic Acid 1 MG TABLET PO SCH (09:49)
[2019-08-17] MEDS: Aspirin Enteric Coated 81 MG Tablet PO SCH (09:49)
[2019-08-17] MEDS: cefTRIAXone 2,000 MG in Water for inj. (sterile) 20 ML IVP SCH (09:49)
[2019-08-17] MEDS: Azithromycin 500 MG in 0.9 % Sodium Chloride 250 ML IVPB SCH (09:50)
[2019-08-17] MEDS: Nicotine 21 MG PATCH.TD24 TD SCH (09:50)
[2019-08-17] MEDS ORDERED: Acetaminophen 325 MG TABLET PO PRN (10:18)
[2019-08-17] MEDS ORDERED: Isovue-370 500 ML BOTTLE IVP ONE (13:02)
[2019-08-17] MEDS ORDERED: Ketorolac 15 MG/ML VIAL IVP PRN (13:16)
[2019-08-17] MEDS: Ipratropium/Albuterol Neb 3 ML IH SCH ×3 (15:37→20:09)
[2019-08-17 16:35] LABS: ABG Base Excess 4 mEq/L (-2 to 3); ABG HCO3 28 mEq/L (21-27); ABG Oxygen Saturation 94 % (95-98); ABG PCO2 41 mmHg (35-45); ABG PH 7.44 pH Units (7.32-7.45); ABG PO2 69 mmHg (85-104); ABG TCO2 29 mEq/L (20-26)
[2019-08-17] MEDS: Piperacillin/Tazobactam 3.375 GM in 0.9 % Sodium Chloride Mini Bag 100 ML IVPB SCH (16:47)
[2019-08-17 18:00] LABS: Adenovirus Not Detected (Not Detect); Coronavirus 229E Not Detected (Not Detect); Coronavirus HKU1 Not Detected (Not Detect); Coronavirus NL63 Not Detected (Not Detect); Coronavirus OC43 Not Detected (Not Detect); Human Metapneumovirus Not Detected (Not Detect); Human Rhinovirus/Enterovirus Not Detected (Not Detect); Influenza A Subtype 2009 H1 Not Detected (Not Detect); Influenza B Not Detected (Not Detect)
[2019-08-17 18:01] LABS: Bordetella Pertussis Not Detected (Not Detect); Chlamydophila pneumoniae Not Detected (Not Detect); Mycoplasma pneumoniae Not Detected (Not Detect); Parainfluenza Virus 1 Not Detected (Not Detect); Parainfluenza Virus 2 Not Detected (Not Detect); Parainfluenza Virus 3 Not Detected (Not Detect); Parainfluenza Virus 4 Not Detected (Not Detect); Respiratory Syncytial Virus Not Detected (Not Detect)
[2019-08-18] MEDS: Piperacillin/Tazobactam 3.375 GM in 0.9 % Sodium Chloride Mini Bag 100 ML IVPB SCH ×4 (00:01→23:59)
[2019-08-18] MEDS: Ipratropium/Albuterol Neb 3 ML IH SCH ×7 (00:25→23:18)
[2019-08-18 05:08] LABS: Basophils % 0.3 %; Eosinophils % 0.1 %; Hematocrit 41.9 % (35.3-44.9); Hemoglobin 13.2 g/dL (11.5-15.4); Immature Granulocytes % 0.7 % (0-4); Lymphocytes # 2.7 K/mcL (0.6-4.6); Lymphocytes % 18.4 %; Mean Corpuscular HGB Conc 31.5 g/dL (31.6-35.5); Mean Corpuscular Hemoglobin 28.1 pg (28.0-33.3); Mean Corpuscular Volume 89.1 fL (83.0-100.0); Mean Platelet Volume 9.7 fL (9.4-12.4); Monocytes % 6.7 %; Neutrophils # 10.9 K/mcL (1.6-8.9); Platelet Count 424 K/mcL (140-400); Red Cell Distribution Width 15.3 % (11.5-14.5); Segmented Neutrophils % 73.8 %; White Blood Count 14.7 K/mcL (4.3-11.1)
[2019-08-18 05:25] LABS: BUN/Creatinine Ratio 32 (6-26); Blood Urea Nitrogen 21 mg/dL (8-23); Calcium 9.5 mg/dL (8.6-10.3); Carbon Dioxide 26 mEq/L (23-29); Chloride 103 mEq/L (98-107); Glucose 97 mg/dL (70-105); Osmolality,Calculated 293 (280-300); Potassium 3.6 mEq/L (3.5-5.1); Sodium 140 mEq/L (136-145); eGFR For African Americans > 60 (> 60); eGFR For Non-African Americans > 60 (> 60)
[2019-08-18] MEDS: *HR* Heparin 5,000 UNIT/ML VIAL SQ SCH ×3 (06:22→19:58)
[2019-08-18] MEDS: Doxycycline 100 MG CAPSULE PO SCH ×2 (08:47→19:59)
[2019-08-18] MEDS: Aspirin Enteric Coated 81 MG Tablet PO SCH (08:47)
[2019-08-18] MEDS: Folic Acid 1 MG TABLET PO SCH (08:48)
[2019-08-18] MEDS: Cholecalciferol (D-3) 1,000 UNIT (25MCG) TABLET PO SCH (08:48)
[2019-08-18] MEDS: predniSONE 20 MG TABLET PO SCH (08:48)
[2019-08-18] MEDS: Nicotine 21 MG PATCH.TD24 TD SCH (08:49)
[2019-08-18] MEDS ORDERED: Cefdinir 300 MG CAPSULE PO SCH (09:00)
[2019-08-18] MEDS: Ketorolac 15 MG/ML VIAL IVP PRN (19:59)
[2019-08-19 01:08] LABS: Basophils % 0.3 %; Eosinophils % 0.2 %; Hematocrit 38.9 % (35.3-44.9); Hemoglobin 12.6 g/dL (11.5-15.4); Immature Granulocytes % 1.4 % (0-4); Lymphocytes # 1.8 K/mcL (0.6-4.6); Lymphocytes % 15.8 %; Mean Corpuscular HGB Conc 32.4 g/dL (31.6-35.5); Mean Corpuscular Hemoglobin 28.6 pg (28.0-33.3); Mean Corpuscular Volume 88.4 fL (83.0-100.0); Mean Platelet Volume 9.5 fL (9.4-12.4); Monocytes # 0.9 K/mcL (0.0-1.3); Monocytes % 7.5 %; Neutrophils # 8.4 K/mcL (1.6-8.9); Platelet Count 386 K/mcL (140-400); Red Cell Distribution Width 15.3 % (11.5-14.5); Segmented Neutrophils % 74.8 %; White Blood Count 11.3 K/mcL (4.3-11.1)
[2019-08-19 01:14] LABS: INR 1.1; Prothrombin Time 12.2 Seconds (9.4-12.1)
[2019-08-19] MEDS: Ipratropium/Albuterol Neb 3 ML IH SCH ×7 (03:32→23:38)
[2019-08-19] MEDS: *HR* Heparin 5,000 UNIT/ML VIAL SQ SCH ×3 (06:01→23:34)
[2019-08-19] MEDS: Nicotine 21 MG PATCH.TD24 TD SCH (09:03)
[2019-08-19] MEDS: Folic Acid 1 MG TABLET PO SCH (09:04)
[2019-08-19] MEDS: Cholecalciferol (D-3) 1,000 UNIT (25MCG) TABLET PO SCH (09:04)
[2019-08-19] MEDS: Aspirin Enteric Coated 81 MG Tablet PO SCH (09:04)
[2019-08-19] MEDS: predniSONE 20 MG TABLET PO SCH (09:04)
[2019-08-19] MEDS: Doxycycline 100 MG CAPSULE PO SCH ×2 (09:04→20:01)
[2019-08-19] MEDS: Piperacillin/Tazobactam 3.375 GM in 0.9 % Sodium Chloride Mini Bag 100 ML IVPB SCH ×2 (09:05→17:17)
[2019-08-19] MEDS ORDERED: Lidocaine -MPF 4% 5 ML AMPUL ONE (10:44)
[2019-08-19] MEDS ORDERED: Dexamethasone 4 MG/ML VIAL ONE (10:46)
[2019-08-19] MEDS ORDERED: Ondansetron 4 MG/2 ML VIAL ONE (10:46)
[2019-08-19] MEDS ORDERED: *HR* Succinylcholine 200 MG/10 ML VIAL IVP ONE (10:46)
[2019-08-19] MEDS ORDERED: Lidocaine -MPF 2% 2 ML VIAL ONE (10:46)
[2019-08-19] MEDS ORDERED: *HR* Rocuronium Bromide 50 MG/5 ML VIAL ONE (10:46)
[2019-08-19] MEDS ORDERED: *HR* Propofol 200 MG/20 ML VIAL IVP ONE (10:46)
[2019-08-19] MEDS ORDERED: Propofol 500 MG/50 ML INFUS..BTL ONE (10:59)
[2019-08-19] MEDS ORDERED: *HR* Labetalol 20 MG/4 ML SYRINGE IVP ONE (11:16)
[2019-08-19] MEDS ORDERED: *HR* PHENYLEPHRINE 1,000 MCG/10 ML SYRINGE IVP ONE (11:45)
[2019-08-19] MEDS ORDERED: *HR* EPINEPHrine 1 MG/10 ML SYRINGE INTRATRACH ONE (12:13)
[2019-08-19 14:35] LABS: Appearance of Body Fluid Cloudy (Clear)
[2019-08-19 14:36] LABS: Volume of Body Fluid 15 mL
[2019-08-20 00:06] LABS: A.galactomannan Ag Index 0.07
[2019-08-20] MEDS: Piperacillin/Tazobactam 3.375 GM in 0.9 % Sodium Chloride Mini Bag 100 ML IVPB SCH ×2 (00:55→08:20)
[2019-08-20 01:31] LABS: Basophils % 0.2 %; Hematocrit 39.5 % (35.3-44.9); Hemoglobin 12.1 g/dL (11.5-15.4); Immature Granulocytes % 1.5 % (0-4); Lymphocytes # 0.8 K/mcL (0.6-4.6); Lymphocytes % 7.9 %; Mean Corpuscular HGB Conc 30.6 g/dL (31.6-35.5); Mean Corpuscular Hemoglobin 27.6 pg (28.0-33.3); Mean Platelet Volume 9.4 fL (9.4-12.4); Monocytes # 0.8 K/mcL (0.0-1.3); Monocytes % 7.7 %; Neutrophils # 8.8 K/mcL (1.6-8.9); Platelet Count 415 K/mcL (140-400); Red Blood Count 4.39 M/mcL (3.82-4.97); Red Cell Distribution Width 15.6 % (11.5-14.5); Segmented Neutrophils % 82.7 %; White Blood Count 10.7 K/mcL (4.3-11.1)
[2019-08-20 01:50] LABS: BUN/Creatinine Ratio 24 (6-26); Blood Urea Nitrogen 18 mg/dL (8-23); Calcium 9.5 mg/dL (8.6-10.3); Carbon Dioxide 28 mEq/L (23-29); Chloride 105 mEq/L (98-107); Glucose 146 mg/dL (70-105); Osmolality,Calculated 295 (280-300); Potassium 4.3 mEq/L (3.5-5.1); Sodium 140 mEq/L (136-145); eGFR For African Americans > 60 (> 60); eGFR For Non-African Americans > 60 (> 60)
[2019-08-20] MEDS: Ketorolac 15 MG/ML VIAL IVP PRN (02:28)
[2019-08-20] MEDS: Ipratropium/Albuterol Neb 3 ML IH SCH ×4 (03:42→16:35)
[2019-08-20] MEDS: *HR* Heparin 5,000 UNIT/ML VIAL SQ SCH ×2 (05:55→14:25)
[2019-08-20] MEDS: Nicotine 21 MG PATCH.TD24 TD SCH (08:21)
[2019-08-20] MEDS: Aspirin Enteric Coated 81 MG Tablet PO SCH (08:22)
[2019-08-20] MEDS: Cholecalciferol (D-3) 1,000 UNIT (25MCG) TABLET PO SCH (08:22)
[2019-08-20] MEDS: Doxycycline 100 MG CAPSULE PO SCH (08:22)
[2019-08-20] MEDS: Folic Acid 1 MG TABLET PO SCH (08:22)
[2019-08-20] MEDS: predniSONE 20 MG TABLET PO SCH (08:22)
[2019-08-20 09:36] VITALS: BP 128/62
[2019-08-20 09:52] LABS: Serine Protease-3 Antibody 2 AU/mL (0-19)
[2019-08-20 09:57] LABS: ANA IgG by ELISA NONE DETECTED (None Detected)
== END 2019-08-20 18:35 | disposition home or self-care (01) | DRG 871 ==
LOC: EMEROOARM 18:14 → 2NENU 18:14 → SUATTDRO 20:40 → 2NENU 21:44 → SUATTDRO 08-16 12:27
PROVIDERS: ADMIT Internal Medicine; ATTEND Internal Medicine
PROC: ENDOBRF (2019-08-19 11:35)

== ENCOUNTER 2019-09-04 17:15 | Inpatient (IN) ==
[2019-09-04] MEDS ORDERED: Ipratropium/Albuterol Neb 3 ML IH ONE (17:45)
[2019-09-04] MEDS ORDERED: methylPREDNISolone 125 MG/2 ML VIAL IVP ONE (17:56)
[2019-09-04] MEDS ORDERED: Isovue-370 500 ML BOTTLE IVP ONE (17:56)
[2019-09-04 18:05] LABS: Bilirubin,Urine Negative (Negative); Blood,Urine Negative (Negative); Clarity,Urine Cloudy (Clear); Color,Urine Yellow (Yellow); Glucose,Urine (UA) Normal (Normal); Ketones,Urine 40 mg/dL (Negative); Leukocyte Esterase,Urine Negative (Negative); Nitrite,Urine Negative (Negative); Protein,Urine Trace mg/dL (Neg-Trace); Specific Gravity,Urine 1.022 (1.010-1.025); Urobilinogen,Urine Normal (Normal)
[2019-09-04 18:06] LABS: Bacteria,Urine None Seen per hpf (None-Few); Hyaline Casts,Urine None Seen per lpf (None-Few); Squamous Epithelial Cell,Urine Many per lpf (None-Few); WBC,Urine 0-3 per hpf (0-3)
[2019-09-04 18:13] LABS: Basophils # 0.1 K/mcL (0.0-0.2); Basophils % 0.4 %; Eosinophils # 0.2 K/mcL (0.0-0.6); Eosinophils % 1.9 %; Hematocrit 38.9 % (35.3-44.9); Hemoglobin 12.2 g/dL (11.5-15.4); Immature Granulocytes % 0.4 % (0-4); Lymphocytes # 1.4 K/mcL (0.6-4.6); Lymphocytes % 11.5 %; Mean Corpuscular HGB Conc 31.4 g/dL (31.6-35.5); Mean Corpuscular Hemoglobin 27.9 pg (28.0-33.3); Mean Corpuscular Volume 88.8 fL (83.0-100.0); Mean Platelet Volume 8.8 fL (9.4-12.4); Monocytes # 0.8 K/mcL (0.0-1.3); Monocytes % 6.3 %; Neutrophils # 9.5 K/mcL (1.6-8.9); Platelet Count 559 K/mcL (140-400); Red Blood Count 4.38 M/mcL (3.82-4.97); Red Cell Distribution Width 14.8 % (11.5-14.5); Segmented Neutrophils % 79.5 %; White Blood Count 11.9 K/mcL (4.3-11.1)
[2019-09-04 18:44] LABS: Alanine Aminotransferase 12 Units/L (7-52); Albumin 3.3 g/dL (3.5-5.7); Albumin/Globulin Ratio 0.8 (1.1-2.2); Alkaline Phosphatase 96 Units/L (34-104); Aspartate Amino Transferase 11 Units/L (13-39); BUN/Creatinine Ratio 11 (6-26); Bilirubin,Total 0.4 mg/dL (0.3-1.0); Blood Urea Nitrogen 6 mg/dL (8-23); Calcium 9.4 mg/dL (8.6-10.3); Carbon Dioxide 25 mEq/L (23-29); Chloride 101 mEq/L (98-107); Globulin 3.9 g/dL (2.4-3.5); Glucose 122 mg/dL (70-105); Osmolality,Calculated 279 (280-300); Potassium 3.9 mEq/L (3.5-5.1); Sodium 135 mEq/L (136-145); Total Protein 7.2 g/dL (6.4-8.9); Troponin I 0.03 ng/mL (< 0.04); eGFR For African Americans > 60 (> 60); eGFR For Non-African Americans > 60 (> 60)
[2019-09-04] MEDS ORDERED: Piperacillin/Tazobactam 3.375 GM in 0.9 % Sodium Chloride Mini Bag 100 ML IVPB ONE (19:52)
[2019-09-04] MEDS ORDERED: Azithromycin 500 MG in 0.9 % Sodium Chloride 250 ML IVPB ONE (19:52)
[2019-09-04] MEDS ORDERED: Piperacillin/Tazobactam 3.375 GM in Water for inj. (sterile) 20 ML IVP ONE (19:57)
[2019-09-04] MEDS ORDERED: Morphine Sulfate 2 MG/ML SYRINGE IVP ONE (19:58)
[2019-09-04] MEDS ORDERED: Naloxone 0.4 MG/ML INJ IVP PRN ×2 (21:46→21:52)
[2019-09-04] MEDS ORDERED: Methylnaltrexone 12 MG/0.6 ML SYRINGE SQ ONE (21:50)
[2019-09-04] MEDS ORDERED: Vancomycin (wt based) 1,000 MG VIAL IVPB SCH (22:00)
[2019-09-04] MEDS ORDERED: 0.9 % Sodium Chloride 1,000 ML IVC SCH (22:00)
[2019-09-04] MEDS: Melatonin 3 MG TABLET PO SCH (22:56)
[2019-09-04] MEDS: Cefepime HCl 2,000 MG in Water for inj. (sterile) 20 ML IVP SCH (22:56)
[2019-09-04] MEDS: MetroNIDAZOLE 500 MG/100 ML 500 MG/100 ML BAG IVPB SCH (22:57)
[2019-09-05 01:05] LABS: Bilirubin,Urine Negative (Negative); Blood,Urine Negative (Negative); Clarity,Urine Clear (Clear); Color,Urine Yellow (Yellow); Glucose,Urine (UA) Normal (Normal); Ketones,Urine 15 mg/dL (Negative); Leukocyte Esterase,Urine Negative (Negative); Nitrite,Urine Negative (Negative); Protein,Urine Trace mg/dL (Neg-Trace); Specific Gravity,Urine > 1.030 (1.010-1.025); Urobilinogen,Urine Normal (Normal)
[2019-09-05] MEDS: *HR* Heparin 5,000 UNIT/ML VIAL SQ SCH ×2 (06:33→16:33)
[2019-09-05 07:11] LABS: Basophils % 0.1 %; Immature Granulocytes % 0.3 % (0-4); Lymphocytes # 0.7 K/mcL (0.6-4.6); Lymphocytes % 8.4 %; Mean Corpuscular HGB Conc 31.4 g/dL (31.6-35.5); Mean Corpuscular Hemoglobin 28.3 pg (28.0-33.3); Mean Platelet Volume 9.2 fL (9.4-12.4); Monocytes # 0.1 K/mcL (0.0-1.3); Monocytes % 0.9 %; Platelet Count 536 K/mcL (140-400); Red Blood Count 3.89 M/mcL (3.82-4.97); Red Cell Distribution Width 14.9 % (11.5-14.5); Segmented Neutrophils % 90.3 %; White Blood Count 7.7 K/mcL (4.3-11.1)
[2019-09-05 07:14] LABS: INR 1.3; Prothrombin Time 15.2 Seconds (9.4-12.1)
[2019-09-05 07:34] LABS: Alanine Aminotransferase 10 Units/L (7-52); Albumin 3.2 g/dL (3.5-5.7); Alkaline Phosphatase 88 Units/L (34-104); Aspartate Amino Transferase 7 Units/L (13-39); BUN/Creatinine Ratio 15 (6-26); Bilirubin,Total 0.2 mg/dL (0.3-1.0); Blood Urea Nitrogen 8 mg/dL (8-23); Calcium 8.9 mg/dL (8.6-10.3); Carbon Dioxide 23 mEq/L (23-29); Chloride 105 mEq/L (98-107); Globulin 3.3 g/dL (2.4-3.5); Glucose 163 mg/dL (70-105); Magnesium 1.8 mg/dL (1.6-2.6); Osmolality,Calculated 286 (280-300); Phosphorous 1.9 mg/dL (2.7-4.5); Potassium 4.1 mEq/L (3.5-5.1); Sodium 137 mEq/L (136-145); Total Protein 6.5 g/dL (6.4-8.9); eGFR For African Americans > 60 (> 60); eGFR For Non-African Americans > 60 (> 60)
[2019-09-05] MEDS: Cefepime HCl 2,000 MG in Water for inj. (sterile) 20 ML IVP SCH ×2 (07:40→15:24)
[2019-09-05] MEDS: MetroNIDAZOLE 500 MG/100 ML 500 MG/100 ML BAG IVPB SCH ×2 (07:45→15:26)
[2019-09-05 08:45] LABS: Estimated Average Glucose 151 mg/dl
[2019-09-05] MEDS ORDERED: D5% in Water 1,000 ML IVC PRN (10:35)
[2019-09-05] MEDS ORDERED: Dextrose Gel 15 GM/37.5 ML TUBE PO PRN ×2 (10:35)
[2019-09-05] MEDS ORDERED: *HR* Dextrose 50 % in Water (Syg) 50 ML SYRINGE IVP PRN (10:35)
[2019-09-05] MEDS: Cholecalciferol (D-3) 1,000 UNIT (25MCG) TABLET PO SCH (11:10)
[2019-09-05] MEDS: Insulin LISPRO 300 UNITS/3 ML VIAL SQ SCH ×3 (11:13→21:13)
[2019-09-05] MEDS ORDERED: Morphine Sulfate 2 MG/ML SYRINGE IVP ONE (20:49)
[2019-09-05] MEDS: Melatonin 3 MG TABLET PO SCH (21:12)
[2019-09-05] MEDS: *HR* OxyCODONE Immed Rel 5 MG TABLET PO PRN (21:48)
[2019-09-06] MEDS: Cefepime HCl 2,000 MG in Water for inj. (sterile) 20 ML IVP SCH ×4 (00:40→23:36)
[2019-09-06] MEDS: MetroNIDAZOLE 500 MG/100 ML 500 MG/100 ML BAG IVPB SCH ×4 (00:42→23:37)
[2019-09-06 02:51] LABS: Hematocrit 38.4 % (35.3-44.9); Hemoglobin 12.2 g/dL (11.5-15.4); Mean Corpuscular HGB Conc 31.8 g/dL (31.6-35.5); Mean Corpuscular Hemoglobin 28.2 pg (28.0-33.3); Mean Corpuscular Volume 88.9 fL (83.0-100.0); Mean Platelet Volume 9.1 fL (9.4-12.4); Platelet Count 649 K/mcL (140-400); Red Blood Count 4.32 M/mcL (3.82-4.97); Red Cell Distribution Width 14.8 % (11.5-14.5); White Blood Count 18.2 K/mcL (4.3-11.1)
[2019-09-06 03:10] LABS: BUN/Creatinine Ratio 14 (6-26); Blood Urea Nitrogen 9 mg/dL (8-23); Calcium 10.5 mg/dL (8.6-10.3); Carbon Dioxide 28 mEq/L (23-29); Chloride 100 mEq/L (98-107); Glucose 132 mg/dL (70-105); Osmolality,Calculated 285 (280-300); Potassium 3.8 mEq/L (3.5-5.1); Sodium 137 mEq/L (136-145); eGFR For African Americans > 60 (> 60); eGFR For Non-African Americans > 60 (> 60)
[2019-09-06] MEDS: *HR* Heparin 5,000 UNIT/ML VIAL SQ SCH ×2 (06:28→16:31)
[2019-09-06] MEDS ORDERED: Ondansetron 4 MG/2 ML VIAL IVP ONE (06:59)
[2019-09-06] MEDS ORDERED: Aminoglycoside Consult 1 EACH MC ONE (07:39)
[2019-09-06] MEDS: *HR* OxyCODONE Immed Rel 5 MG TABLET PO PRN ×2 (08:02→16:29)
[2019-09-06] MEDS: Aspirin Enteric Coated 81 MG Tablet PO SCH (08:03)
[2019-09-06] MEDS: Folic Acid 1 MG TABLET PO SCH (08:03)
[2019-09-06] MEDS: Cholecalciferol (D-3) 1,000 UNIT (25MCG) TABLET PO SCH (08:04)
[2019-09-06] MEDS: Insulin LISPRO 300 UNITS/3 ML VIAL SQ SCH ×4 (09:11→21:11)
[2019-09-06] MEDS: Mag Hydrox/Al Hydrox/Simeth 30 ML UDC PO PRN (13:14)
[2019-09-06] MEDS ORDERED: Zoledronic Acid (Zometa) 4 MG in 0.9 % Sodium Chloride 100 ML IV ONE (14:45)
[2019-09-06] MEDS ORDERED: Isovue-370 500 ML BOTTLE IVP ONE (14:47)
[2019-09-06] MEDS ORDERED: Gadolinium Contrast Agent (WT Based) IV PRN (14:47)
[2019-09-06] MEDS: Melatonin 3 MG TABLET PO SCH (22:07)
[2019-09-07] MEDS ORDERED: Ketorolac 15 MG/ML VIAL IVP PRN (00:11)
[2019-09-07] MEDS: *HR* OxyCODONE Immed Rel 5 MG TABLET PO PRN ×5 (00:20→20:29)
[2019-09-07 05:10] LABS: Hematocrit 37.3 % (35.3-44.9); Hemoglobin 11.7 g/dL (11.5-15.4); Mean Corpuscular HGB Conc 31.4 g/dL (31.6-35.5); Mean Corpuscular Hemoglobin 28.3 pg (28.0-33.3); Mean Corpuscular Volume 90.3 fL (83.0-100.0); Mean Platelet Volume 9.2 fL (9.4-12.4); Platelet Count 562 K/mcL (140-400); Red Blood Count 4.13 M/mcL (3.82-4.97); White Blood Count 11.2 K/mcL (4.3-11.1)
[2019-09-07 05:21] LABS: BUN/Creatinine Ratio 14 (6-26); Blood Urea Nitrogen 9 mg/dL (8-23); Calcium 9.7 mg/dL (8.6-10.3); Carbon Dioxide 28 mEq/L (23-29); Chloride 102 mEq/L (98-107); Glucose 101 mg/dL (70-105); Osmolality,Calculated 281 (280-300); Sodium 136 mEq/L (136-145); eGFR For African Americans > 60 (> 60); eGFR For Non-African Americans > 60 (> 60)
[2019-09-07 05:22] LABS: Chol/HDL Ratio 4.4 (0-4.9); Magnesium 1.7 mg/dL (1.6-2.6); Phosphorous 3.2 mg/dL (2.7-4.5); Uric Acid 4.2 mg/dL (2.3-7.6)
[2019-09-07] MEDS: *HR* Heparin 5,000 UNIT/ML VIAL SQ SCH ×2 (06:39→16:33)
[2019-09-07] MEDS: Insulin LISPRO 300 UNITS/3 ML VIAL SQ SCH ×4 (07:32→20:47)
[2019-09-07] MEDS: Aspirin Enteric Coated 81 MG Tablet PO SCH (09:37)
[2019-09-07] MEDS: Folic Acid 1 MG TABLET PO SCH (09:38)
[2019-09-07] MEDS: Cefepime HCl 2,000 MG in Water for inj. (sterile) 20 ML IVP SCH ×2 (09:38→15:30)
[2019-09-07] MEDS: Cholecalciferol (D-3) 1,000 UNIT (25MCG) TABLET PO SCH (09:38)
[2019-09-07] MEDS: MetroNIDAZOLE 500 MG/100 ML 500 MG/100 ML BAG IVPB SCH ×2 (09:39→15:30)
[2019-09-07] MEDS: Mag Hydrox/Al Hydrox/Simeth 30 ML UDC PO PRN (20:52)
[2019-09-07] MEDS: Melatonin 3 MG TABLET PO SCH (20:52)
[2019-09-08] MEDS: Cefepime HCl 2,000 MG in Water for inj. (sterile) 20 ML IVP SCH ×4 (00:02→22:37)
[2019-09-08] MEDS: MetroNIDAZOLE 500 MG/100 ML 500 MG/100 ML BAG IVPB SCH ×4 (00:03→22:37)
[2019-09-08] MEDS: *HR* OxyCODONE Immed Rel 5 MG TABLET PO PRN (01:34)
[2019-09-08 05:40] LABS: Hematocrit 36.1 % (35.3-44.9); Hemoglobin 11.6 g/dL (11.5-15.4); Mean Corpuscular HGB Conc 32.1 g/dL (31.6-35.5); Mean Corpuscular Hemoglobin 28.7 pg (28.0-33.3); Mean Corpuscular Volume 89.4 fL (83.0-100.0); Platelet Count 492 K/mcL (140-400); Red Blood Count 4.04 M/mcL (3.82-4.97); White Blood Count 9.4 K/mcL (4.3-11.1)
[2019-09-08 05:59] LABS: BUN/Creatinine Ratio 18 (6-26); Blood Urea Nitrogen 12 mg/dL (8-23); Calcium 8.8 mg/dL (8.6-10.3); Carbon Dioxide 27 mEq/L (23-29); Chloride 100 mEq/L (98-107); Glucose 124 mg/dL (70-105); Osmolality,Calculated 279 (280-300); Potassium 3.9 mEq/L (3.5-5.1); Sodium 134 mEq/L (136-145); eGFR For African Americans > 60 (> 60); eGFR For Non-African Americans > 60 (> 60)
[2019-09-08] MEDS: *HR* Heparin 5,000 UNIT/ML VIAL SQ SCH ×2 (06:07→16:34)
[2019-09-08] MEDS: Insulin LISPRO 300 UNITS/3 ML VIAL SQ SCH ×4 (07:48→20:24)
[2019-09-08] MEDS: Folic Acid 1 MG TABLET PO SCH (07:58)
[2019-09-08] MEDS: Aspirin Enteric Coated 81 MG Tablet PO SCH (07:58)
[2019-09-08] MEDS: Cholecalciferol (D-3) 1,000 UNIT (25MCG) TABLET PO SCH (07:58)
[2019-09-08] MEDS: GuaiFENesin Liq 200 MG/10 ML UDC PO PRN (08:13)
[2019-09-08] MEDS: Mag Hydrox/Al Hydrox/Simeth 30 ML UDC PO PRN ×2 (08:13→16:57)
[2019-09-08] MEDS ORDERED: Ipratropium/Albuterol Neb 3 ML IH PRN (08:30)
[2019-09-08] MEDS ORDERED: Acetaminophen IV 500 MG/50 ML INFUS..BTL IVPB ONE ×2 (09:31→17:47)
[2019-09-08] MEDS: Melatonin 3 MG TABLET PO SCH (20:31)
[2019-09-08] MEDS ORDERED: *HR* OxyCODONE Immed Rel 5 MG TABLET PO ONE (23:15)
[2019-09-09] MEDS ORDERED: Prochlorperazine 10 MG/2 ML VIAL IVP STA (00:24)
[2019-09-09 01:55] LABS: Hematocrit 37.9 % (35.3-44.9); Hemoglobin 11.8 g/dL (11.5-15.4); Mean Corpuscular HGB Conc 31.1 g/dL (31.6-35.5); Mean Corpuscular Hemoglobin 27.8 pg (28.0-33.3); Mean Corpuscular Volume 89.2 fL (83.0-100.0); Platelet Count 481 K/mcL (140-400); Red Blood Count 4.25 M/mcL (3.82-4.97); Red Cell Distribution Width 14.9 % (11.5-14.5); White Blood Count 10.7 K/mcL (4.3-11.1)
[2019-09-09 02:31] LABS: BUN/Creatinine Ratio 19 (6-26); Blood Urea Nitrogen 11 mg/dL (8-23); Calcium 8.4 mg/dL (8.6-10.3); Carbon Dioxide 26 mEq/L (23-29); Chloride 103 mEq/L (98-107); Glucose 122 mg/dL (70-105); Osmolality,Calculated 279 (280-300); Potassium 3.7 mEq/L (3.5-5.1); Sodium 134 mEq/L (136-145); eGFR For African Americans > 60 (> 60); eGFR For Non-African Americans > 60 (> 60)
[2019-09-09] MEDS: *HR* Heparin 5,000 UNIT/ML VIAL SQ SCH ×2 (05:36→17:19)
[2019-09-09] MEDS: Insulin LISPRO 300 UNITS/3 ML VIAL SQ SCH ×4 (08:35→19:52)
[2019-09-09] MEDS: Aspirin Enteric Coated 81 MG Tablet PO SCH (08:36)
[2019-09-09] MEDS: Cholecalciferol (D-3) 1,000 UNIT (25MCG) TABLET PO SCH (08:37)
[2019-09-09] MEDS: Folic Acid 1 MG TABLET PO SCH (08:37)
[2019-09-09] MEDS: Cefepime HCl 2,000 MG in Water for inj. (sterile) 20 ML IVP SCH ×3 (08:38→23:43)
[2019-09-09] MEDS: MetroNIDAZOLE 500 MG/100 ML 500 MG/100 ML BAG IVPB SCH ×3 (08:39→23:44)
[2019-09-09] MEDS: GuaiFENesin Liq 200 MG/10 ML UDC PO PRN (08:45)
[2019-09-09] MEDS ORDERED: Ondansetron 4 MG/2 ML VIAL IVP ONE (09:32)
[2019-09-09] MEDS ORDERED: Acetaminophen IV 500 MG/50 ML INFUS..BTL IVPB ONE (09:33)
[2019-09-09] MEDS ORDERED: *HR* OxyCODONE Immed Rel 5 MG TABLET PO PRN (09:33)
[2019-09-09] MEDS ORDERED: 0.9 % Sodium Chloride 1,000 ML IVC SCH (12:30)
[2019-09-09] MEDS: Melatonin 3 MG TABLET PO SCH (19:52)
[2019-09-10] MEDS ORDERED: *HR* HYDROmorphone 2 MG TABLET PO ONE (01:28)
[2019-09-10 02:00] LABS: Hemoglobin 11.6 g/dL (11.5-15.4); Mean Corpuscular HGB Conc 30.5 g/dL (31.6-35.5); Mean Corpuscular Hemoglobin 27.4 pg (28.0-33.3); Mean Corpuscular Volume 89.6 fL (83.0-100.0); Mean Platelet Volume 9.1 fL (9.4-12.4); Platelet Count 515 K/mcL (140-400); Red Blood Count 4.24 M/mcL (3.82-4.97); White Blood Count 10.7 K/mcL (4.3-11.1)
[2019-09-10 02:20] LABS: BUN/Creatinine Ratio 17 (6-26); Blood Urea Nitrogen 10 mg/dL (8-23); Calcium 8.6 mg/dL (8.6-10.3); Carbon Dioxide 25 mEq/L (23-29); Chloride 102 mEq/L (98-107); Glucose 119 mg/dL (70-105); Osmolality,Calculated 280 (280-300); Sodium 135 mEq/L (136-145); eGFR For African Americans > 60 (> 60); eGFR For Non-African Americans > 60 (> 60)
[2019-09-10] MEDS ORDERED: *HR* OxyCODONE Immed Rel 15 MG TABLET PO ONE (03:11)
[2019-09-10] MEDS: *HR* Heparin 5,000 UNIT/ML VIAL SQ SCH ×2 (05:17→17:20)
[2019-09-10] MEDS ORDERED: Acetaminophen IV 500 MG/50 ML INFUS..BTL IVPB ONE (07:34)
[2019-09-10] MEDS: Insulin LISPRO 300 UNITS/3 ML VIAL SQ SCH ×3 (08:55→17:15)
[2019-09-10] MEDS: *HR* OxyCODONE Immed Rel 5 MG TABLET PO PRN ×2 (08:56→17:24)
[2019-09-10] MEDS: Aspirin Enteric Coated 81 MG Tablet PO SCH (08:56)
[2019-09-10] MEDS: GuaiFENesin Liq 200 MG/10 ML UDC PO PRN (08:56)
[2019-09-10] MEDS: Folic Acid 1 MG TABLET PO SCH (08:56)
[2019-09-10] MEDS: Cholecalciferol (D-3) 1,000 UNIT (25MCG) TABLET PO SCH (08:56)
[2019-09-10] MEDS: Cefepime HCl 2,000 MG in Water for inj. (sterile) 20 ML IVP SCH (08:57)
[2019-09-10] MEDS: MetroNIDAZOLE 500 MG/100 ML 500 MG/100 ML BAG IVPB SCH (08:57)
[2019-09-10] MEDS ORDERED: Acetaminophen IV 500 MG/50 ML INFUS..BTL IVPB SCH (16:00)
[2019-09-10 18:47] VITALS: BP 119/61
== END 2019-09-10 19:55 | DRG 871 ==
LOC: 3BNU 17:15 → EMEROOARM 17:15 → 3BNU 20:43
PROVIDERS: ADMIT Family Medicine; ATTEND Family Medicine

== ENCOUNTER 2019-09-26 08:55 | Inpatient (IN) ==
[2019-09-26] MEDS ORDERED: Ondansetron 4 MG/2 ML VIAL IVP ONE (08:59)
[2019-09-26 09:13] LABS: Basophils # 0.1 K/mcL (0.0-0.2); Basophils % 0.2 %; Eosinophils # 0.2 K/mcL (0.0-0.6); Eosinophils % 0.8 %; Hematocrit 35.7 % (35.3-44.9); Hemoglobin 11.1 g/dL (11.5-15.4); Immature Granulocytes % 0.7 % (0-4); Lymphocytes # 2.4 K/mcL (0.6-4.6); Lymphocytes % 9.9 %; Mean Corpuscular HGB Conc 31.1 g/dL (31.6-35.5); Mean Corpuscular Hemoglobin 27.3 pg (28.0-33.3); Mean Corpuscular Volume 87.9 fL (83.0-100.0); Mean Platelet Volume 9.1 fL (9.4-12.4); Monocytes # 2.1 K/mcL (0.0-1.3); Monocytes % 8.4 %; Neutrophils # 19.5 K/mcL (1.6-8.9); Platelet Count 581 K/mcL (140-400); Red Blood Count 4.06 M/mcL (3.82-4.97); Red Cell Distribution Width 15.5 % (11.5-14.5); White Blood Count 24.4 K/mcL (4.3-11.1)
[2019-09-26 09:16] LABS: INR 1.3
[2019-09-26] MEDS ORDERED: 0.9 % Sodium Chloride 1,000 ML IVC ONE (09:25)
[2019-09-26 09:32] LABS: Alanine Aminotransferase 7 Units/L (7-52); Albumin/Globulin Ratio 0.8 (1.1-2.2); Alkaline Phosphatase 103 Units/L (34-104); Aspartate Amino Transferase 9 Units/L (13-39); BUN/Creatinine Ratio 15 (6-26); Bilirubin,Direct 0.2 mg/dL (0.0-0.2); Bilirubin,Indirect 0.3 mg/dL (0.0-1.0); Bilirubin,Total 0.5 mg/dL (0.3-1.0); Blood Urea Nitrogen 11 mg/dL (8-23); Calcium 8.8 mg/dL (8.6-10.3); Carbon Dioxide 21 mEq/L (23-29); Chloride 103 mEq/L (98-107); Ethanol < 10 mg/dL (Less than 10); Globulin 3.7 g/dL (2.4-3.5); Glucose 154 mg/dL (70-105); Osmolality,Calculated 282 (280-300); Potassium 3.7 mEq/L (3.5-5.1); Sodium 135 mEq/L (136-145); Total Protein 6.7 g/dL (6.4-8.9); Troponin I < 0.03 ng/mL (< 0.04); eGFR For African Americans > 60 (> 60); eGFR For Non-African Americans > 60 (> 60)
[2019-09-26] MEDS: Piperacillin/Tazobactam 3.375 GM in 0.9 % Sodium Chloride Mini Bag 100 ML IVPB SCH ×2 (10:04→18:11)
[2019-09-26] MEDS: Azithromycin 500 MG in 0.9 % Sodium Chloride 250 ML IVPB SCH (10:04)
[2019-09-26] MEDS ORDERED: Isovue-370 500 ML BOTTLE IVP ONE (10:12)
[2019-09-26] MEDS ORDERED: *HR* Rocuronium Bromide 50 MG/5 ML VIAL IVC ONE (10:20)
[2019-09-26] MEDS ORDERED: *HR* Etomidate 20 MG/10 ML AMPUL IVP ONE (10:20)
[2019-09-26 10:31] LABS: Bilirubin,Urine Small (Negative); Blood,Urine Negative (Negative); Color,Urine Dark Yellow (Yellow); Glucose,Urine (UA) Normal (Normal); Ketones,Urine Trace mg/dL (Negative); Leukocyte Esterase,Urine Trace (Negative); Nitrite,Urine Negative (Negative); PH,Urine 5.5 pH Units (5.0-8.0); Protein,Urine 100 mg/dL (Neg-Trace); Specific Gravity,Urine > 1.030 (1.010-1.025); Urobilinogen,Urine Normal (Normal)
[2019-09-26 10:34] LABS: Bacteria,Urine None Seen per hpf (None-Few); Squamous Epithelial Cell,Urine Many per lpf (None-Few); WBC,Urine 15-30 per hpf (0-3)
[2019-09-26 10:35] LABS: Clarity,Urine Slightly Hazy (Clear)
[2019-09-26] MEDS ORDERED: Artificial Tears SOLN 15 ML BOTTLE BOTH EYES PRN (10:39)
[2019-09-26 10:46] LABS: Mucus,Urine Many per lpf (Few)
[2019-09-26 10:47] LABS: Granular Casts,Urine Few per lpf (None Seen); Hyaline Casts,Urine Few per lpf (None-Few)
[2019-09-26 10:48] LABS: Renal Epithelial Cells,Urine Few per hpf (None-Few); Transitional Epi Cells,Urine Few per hpf (None-Few)
[2019-09-26 11:17] LABS: ABG Base Excess -2 mEq/L (-2 to 3); ABG HCO3 26 mEq/L (21-27); ABG Oxygen Saturation 94 % (95-98); ABG PCO2 54 mmHg (35-45); ABG PH 7.28 pH Units (7.32-7.45); ABG PO2 79 mmHg (85-104); ABG TCO2 27 mEq/L (20-26); Blood Gas Modality ASSIST CONTROL; Blood Gas VT 450 cc
[2019-09-26] MEDS: Ipratropium/Albuterol Neb 3 ML IH SCH ×4 (11:18→23:19)
[2019-09-26] MEDS ORDERED: Azithromycin 500 MG in 0.9 % Sodium Chloride 250 ML IVPB SCH (12:00)
[2019-09-26] MEDS: Artificial Tears SOLN 15 ML BOTTLE BOTH EYES SCH ×4 (12:24→23:58)
[2019-09-26 12:30] LABS: Amphetamine Screen,Urine Negative ng/mL (Cutoff=1000); Barbiturate Screen,Urine Negative ng/mL (Cutoff=200); Benzodiazepines Screen,Urine Negative ng/mL (Cutoff=200); Cannabinoid Screen,Urine Negative ng/mL (Cutoff = 50); Cocaine Screen,Urine Negative ng/mL (Cutoff= 300); Opiate Screen,Urine Positive ng/mL (Cutoff=300); Phencyclidine Screen,Urine Negative ng/mL (Cutoff=25)
[2019-09-26 12:43] LABS: Adenovirus Not Detected (Not Detect); Bordetella Pertussis Not Detected (Not Detect); Chlamydophila pneumoniae Not Detected (Not Detect); Coronavirus 229E Not Detected (Not Detect); Coronavirus HKU1 Not Detected (Not Detect); Coronavirus NL63 Not Detected (Not Detect); Coronavirus OC43 Not Detected (Not Detect); Human Metapneumovirus Not Detected (Not Detect); Human Rhinovirus/Enterovirus Not Detected (Not Detect); Influenza A Subtype 2009 H1 Not Detected (Not Detect); Influenza B Not Detected (Not Detect); Mycoplasma pneumoniae Not Detected (Not Detect); Parainfluenza Virus 1 Not Detected (Not Detect); Parainfluenza Virus 2 Not Detected (Not Detect); Parainfluenza Virus 3 Not Detected (Not Detect); Parainfluenza Virus 4 Not Detected (Not Detect); Respiratory Syncytial Virus Not Detected (Not Detect)
[2019-09-26] MEDS: Aspirin 81 MG TAB.CHEW PO SCH (13:29)
[2019-09-26] MEDS: FentaNYL (PF) 1,000 MCG in 0.9 % Sodium Chloride 80 ML IVC SCH (14:49)
[2019-09-26] MEDS ORDERED: Piperacillin/Tazobactam 3.375 GM in 0.9 % Sodium Chloride Mini Bag 100 ML IVPB SCH (16:00)
[2019-09-26 16:52] LABS: ABG Base Excess 0 mEq/L (-2 to 3); ABG HCO3 26 mEq/L (21-27); ABG Oxygen Saturation 97 % (95-98); ABG PCO2 48 mmHg (35-45); ABG PH 7.34 pH Units (7.32-7.45); ABG PO2 98 mmHg (85-104); ABG TCO2 28 mEq/L (20-26); Blood Gas Modality ASSIST CONTROL; Blood Gas VT 450 cc
[2019-09-26] MEDS: MethylPREDNISolone 40 MG/ML VIAL IVP SCH (18:11)
[2019-09-26] MEDS: Chlorhexidine Rinse 15 ML MOUTHWASH MM SCH (19:49)
[2019-09-26] MEDS ORDERED: *HR* Enoxaparin 30 MG/0.3 ML SYRINGE SQ SCH (21:00)
[2019-09-27] MEDS: Piperacillin/Tazobactam 3.375 GM in 0.9 % Sodium Chloride Mini Bag 100 ML IVPB SCH ×3 (02:35→18:08)
[2019-09-27] MEDS: Ipratropium/Albuterol Neb 3 ML IH SCH ×6 (03:11→23:50)
[2019-09-27] MEDS: Artificial Tears SOLN 15 ML BOTTLE BOTH EYES SCH ×6 (03:54→23:55)
[2019-09-27 04:27] LABS: Basophils % 0.2 %; Hematocrit 34.7 % (35.3-44.9); Hemoglobin 10.6 g/dL (11.5-15.4); Immature Granulocytes % 0.7 % (0-4); Lymphocytes # 0.7 K/mcL (0.6-4.6); Lymphocytes % 3.4 %; Mean Corpuscular HGB Conc 30.5 g/dL (31.6-35.5); Mean Corpuscular Hemoglobin 27.7 pg (28.0-33.3); Mean Corpuscular Volume 90.8 fL (83.0-100.0); Mean Platelet Volume 9.1 fL (9.4-12.4); Monocytes # 0.4 K/mcL (0.0-1.3); Monocytes % 1.7 %; Neutrophils # 20.2 K/mcL (1.6-8.9); Platelet Count 535 K/mcL (140-400); Red Blood Count 3.82 M/mcL (3.82-4.97); Red Cell Distribution Width 15.6 % (11.5-14.5); White Blood Count 21.5 K/mcL (4.3-11.1)
[2019-09-27 04:45] LABS: BUN/Creatinine Ratio 20 (6-26); Blood Urea Nitrogen 11 mg/dL (8-23); Calcium 8.1 mg/dL (8.6-10.3); Carbon Dioxide 23 mEq/L (23-29); Chloride 105 mEq/L (98-107); Glucose 192 mg/dL (70-105); Osmolality,Calculated 289 (280-300); Potassium 3.9 mEq/L (3.5-5.1); Sodium 137 mEq/L (136-145); eGFR For African Americans > 60 (> 60); eGFR For Non-African Americans > 60 (> 60)
[2019-09-27 04:49] LABS: ABG Base Excess 1 mEq/L (-2 to 3); ABG HCO3 27 mEq/L (21-27); ABG Oxygen Saturation 96 % (95-98); ABG PCO2 45 mmHg (35-45); ABG PH 7.38 pH Units (7.32-7.45); ABG PO2 82 mmHg (85-104); ABG TCO2 28 mEq/L (20-26); Blood Gas Modality VC; Blood Gas VT 450 cc
[2019-09-27] MEDS: MethylPREDNISolone 40 MG/ML VIAL IVP SCH ×2 (06:03→18:08)
[2019-09-27] MEDS: Aspirin 81 MG TAB.CHEW PO SCH (08:53)
[2019-09-27] MEDS: Chlorhexidine Rinse 15 ML MOUTHWASH MM SCH ×2 (08:53→19:54)
[2019-09-27] MEDS: Pantoprazole 40 MG VIAL IVP SCH (08:53)
[2019-09-27] MEDS ORDERED: *HR* Enoxaparin 30 MG/0.3 ML SYRINGE SQ SCH (09:00)
[2019-09-27] MEDS ORDERED: Aminoglycoside Consult 1 EACH MC ONE (10:05)
[2019-09-27 10:16] LABS: Chol/HDL Ratio 3.3 (0-4.9)
[2019-09-27] MEDS: FentaNYL (PF) 1,000 MCG in 0.9 % Sodium Chloride 80 ML IVC SCH ×2 (16:10→23:23)
[2019-09-28] MEDS: Piperacillin/Tazobactam 3.375 GM in 0.9 % Sodium Chloride Mini Bag 100 ML IVPB SCH ×3 (02:07→18:06)
[2019-09-28] MEDS: Ipratropium/Albuterol Neb 3 ML IH SCH ×6 (03:26→23:07)
[2019-09-28] MEDS: Artificial Tears SOLN 15 ML BOTTLE BOTH EYES SCH ×6 (03:59→23:48)
[2019-09-28 04:37] LABS: ABG Base Excess 4 mEq/L (-2 to 3); ABG HCO3 29 mEq/L (21-27); ABG Oxygen Saturation 96 % (95-98); ABG PCO2 49 mmHg (35-45); ABG PH 7.39 pH Units (7.32-7.45); ABG PO2 85 mmHg (85-104); ABG TCO2 31 mEq/L (20-26); Blood Gas Modality ASSIST CONTROL; Blood Gas VT 450 cc
[2019-09-28 05:06] LABS: Basophils % 0.1 %; Hematocrit 31.8 % (35.3-44.9); Hemoglobin 9.8 g/dL (11.5-15.4); Immature Granulocytes % 0.8 % (0-4); Lymphocytes % 4.5 %; Mean Corpuscular HGB Conc 30.8 g/dL (31.6-35.5); Mean Corpuscular Hemoglobin 27.6 pg (28.0-33.3); Mean Corpuscular Volume 89.6 fL (83.0-100.0); Mean Platelet Volume 9.4 fL (9.4-12.4); Monocytes # 0.9 K/mcL (0.0-1.3); Monocytes % 4.3 %; Neutrophils # 19.7 K/mcL (1.6-8.9); Platelet Count 552 K/mcL (140-400); Red Blood Count 3.55 M/mcL (3.82-4.97); Red Cell Distribution Width 15.9 % (11.5-14.5); Segmented Neutrophils % 90.3 %; White Blood Count 21.8 K/mcL (4.3-11.1)
[2019-09-28 05:19] LABS: BUN/Creatinine Ratio 32 (6-26); Blood Urea Nitrogen 15 mg/dL (8-23); Carbon Dioxide 26 mEq/L (23-29); Chloride 106 mEq/L (98-107); Glucose 147 mg/dL (70-105); Osmolality,Calculated 294 (280-300); Sodium 140 mEq/L (136-145); eGFR For African Americans > 60 (> 60); eGFR For Non-African Americans > 60 (> 60)
[2019-09-28] MEDS: MethylPREDNISolone 40 MG/ML VIAL IVP SCH ×2 (06:03→18:07)
[2019-09-28] MEDS ORDERED: Aspirin 81 MG TAB.CHEW GTUBE SCH (09:00)
[2019-09-28] MEDS: *HR* Enoxaparin 40 MG/0.4 ML SYRINGE SQ SCH (09:30)
[2019-09-28] MEDS: Pantoprazole 40 MG VIAL IVP SCH (09:30)
[2019-09-28] MEDS: Chlorhexidine Rinse 15 ML MOUTHWASH MM SCH ×2 (09:32→19:31)
[2019-09-28] MEDS ORDERED: Gadolinium Contrast Agent (WT Based) IV PRN (14:52)
[2019-09-28] MEDS: FentaNYL (PF) 1,000 MCG in 0.9 % Sodium Chloride 80 ML IVC SCH (17:21)
[2019-09-28] MEDS ORDERED: *HR* FentaNYL (PF) 100 MCG/2 ML VIAL IVP PRN (18:44)
[2019-09-29] MEDS: Piperacillin/Tazobactam 3.375 GM in 0.9 % Sodium Chloride Mini Bag 100 ML IVPB SCH ×2 (02:58→09:06)
[2019-09-29] MEDS: Artificial Tears SOLN 15 ML BOTTLE BOTH EYES SCH ×3 (02:59→11:08)
[2019-09-29] MEDS: Ipratropium/Albuterol Neb 3 ML IH SCH ×3 (03:23→11:20)
[2019-09-29 04:40] LABS: Basophils % 0.2 %; Hematocrit 33.8 % (35.3-44.9); Hemoglobin 10.3 g/dL (11.5-15.4); Immature Granulocytes % 1.4 % (0-4); Lymphocytes # 1.4 K/mcL (0.6-4.6); Lymphocytes % 7.4 %; Mean Corpuscular HGB Conc 30.5 g/dL (31.6-35.5); Mean Corpuscular Hemoglobin 27.2 pg (28.0-33.3); Mean Corpuscular Volume 89.4 fL (83.0-100.0); Mean Platelet Volume 9.1 fL (9.4-12.4); Monocytes # 0.8 K/mcL (0.0-1.3); Monocytes % 4.5 %; Platelet Count 562 K/mcL (140-400); Red Blood Count 3.78 M/mcL (3.82-4.97); Red Cell Distribution Width 15.8 % (11.5-14.5); Segmented Neutrophils % 86.5 %; White Blood Count 18.5 K/mcL (4.3-11.1)
[2019-09-29 04:58] LABS: BUN/Creatinine Ratio 40 (6-26); Blood Urea Nitrogen 17 mg/dL (8-23); Calcium 8.2 mg/dL (8.6-10.3); Carbon Dioxide 22 mEq/L (23-29); Chloride 108 mEq/L (98-107); Glucose 127 mg/dL (70-105); Osmolality,Calculated 293 (280-300); Potassium 3.8 mEq/L (3.5-5.1); Sodium 140 mEq/L (136-145); eGFR For African Americans > 60 (> 60); eGFR For Non-African Americans > 60 (> 60)
[2019-09-29] MEDS: MethylPREDNISolone 40 MG/ML VIAL IVP SCH (05:55)
[2019-09-29] MEDS: Pantoprazole 40 MG VIAL IVP SCH (07:43)
[2019-09-29] MEDS: Chlorhexidine Rinse 15 ML MOUTHWASH MM SCH (07:43)
[2019-09-29] MEDS: *HR* Enoxaparin 40 MG/0.4 ML SYRINGE SQ SCH (07:43)
[2019-09-29] MEDS ORDERED: Isovue-370 500 ML BOTTLE IVP ONE (09:42)
[2019-09-29] MEDS ORDERED: *HR* FentaNYL PATCH 25 MCG PATCH TD SCH (09:45)
[2019-09-29] MEDS ORDERED: Ringers Solution, Lactated 1,000 ML IVC SCH (10:45)
[2019-09-29] MEDS: Azithromycin 500 MG in 0.9 % Sodium Chloride 250 ML IVPB SCH (19:59)
[2019-09-30 07:51] VITALS: BP 176/78
[2019-09-30] MEDS ORDERED: Atropine Sulfate 1% 40 DROP/2 ML BOTTLE SL PRN (08:09)
[2019-09-30] MEDS ORDERED: Haloperidol Oral Conc 10 MG/5 ML UDC PO PRN (08:10)
[2019-09-30] MEDS ORDERED: Artificial Tears SOLN 15 ML BOTTLE BOTH EYES SCH (09:00)
[2019-09-30] MEDS: *HR* LORazepam 2 MG/ML VIAL IVP PRN ×2 (09:04→11:45)
[2019-09-30] MEDS ORDERED: *HR* FentaNYL (PF) 100 MCG/2 ML VIAL IVP ONE (09:26)
[2019-09-30] MEDS ORDERED: Scopolamine Patch 1.5 MG PATCH.TD72 TD SCH (12:00)
[2019-10-02] MEDS ORDERED: *HR* FentaNYL PATCH 25 MCG PATCH TD SCH (09:45)
== END 2019-09-30 11:48 | disposition hospice, inpatient (51) | DRG 208 ==
LOC: EMEROOARM 08:55 → SUATTDRO 10:18 → ICNU 10:18 → 2ANU 09-29 14:32
PROVIDERS: ADMIT Pediatrics; ATTEND Internal Medicine

== ENCOUNTER 2019-09-30 09:44 | Inpatient (IN) ==
[2019-09-30] MEDS ORDERED: Bisacodyl 10 MG RECTAL SUPPOSITORY RC PRN (10:24)
[2019-09-30] MEDS ORDERED: Haloperidol Lactate 5 MG/ML VIAL IVP PRN (10:24)
[2019-09-30] MEDS: *HR* FentaNYL (PF) 100 MCG/2 ML VIAL IVP PRN ×2 (13:59→17:11)
[2019-09-30] MEDS: Atropine Sulfate 1% 40 DROP/2 ML BOTTLE SL PRN ×2 (14:00→17:15)
[2019-09-30] MEDS: *HR* LORazepam 2 MG/ML VIAL IVP PRN ×2 (14:00→17:12)
[2019-09-30] MEDS: Artificial Tears SOLN 15 ML BOTTLE BOTH EYES SCH (20:47)
[2019-10-01] MEDS: *HR* LORazepam 2 MG/ML VIAL IVP PRN (03:00)
[2019-10-01] MEDS: *HR* FentaNYL (PF) 100 MCG/2 ML VIAL IVP PRN (03:01)
[2019-10-01] MEDS: Artificial Tears SOLN 15 ML BOTTLE BOTH EYES SCH ×2 (08:28→19:49)
[2019-10-01] MEDS: *HR* FentaNYL PATCH 50 MCG PATCH TD SCH (10:49)
[2019-10-02] MEDS: *HR* LORazepam 2 MG/ML VIAL IVP PRN ×4 (09:08→18:04)
[2019-10-02] MEDS: Artificial Tears SOLN 15 ML BOTTLE BOTH EYES SCH ×2 (09:08→20:14)
[2019-10-02] MEDS ORDERED: *HR* FentaNYL PATCH 25 MCG PATCH TD SCH (10:30)
[2019-10-02] MEDS ORDERED: Scopolamine Patch 1.5 MG PATCH.TD72 TD SCH (12:15)
[2019-10-03] MEDS: *HR* LORazepam 2 MG/ML VIAL IVP PRN ×3 (01:34→11:32)
[2019-10-03] MEDS: Artificial Tears SOLN 15 ML BOTTLE BOTH EYES SCH ×2 (11:43→19:32)
[2019-10-04] MEDS: *HR* LORazepam 2 MG/ML VIAL IVP PRN ×5 (00:32→22:08)
[2019-10-04] MEDS: Artificial Tears SOLN 15 ML BOTTLE BOTH EYES SCH ×2 (08:48→19:44)
[2019-10-04] MEDS: *HR* FentaNYL PATCH 50 MCG PATCH TD SCH (08:48)
[2019-10-04 20:20] VITALS: BP 80/49
[2019-10-05] MEDS: *HR* LORazepam 2 MG/ML VIAL IVP PRN (00:18)
== END 2019-10-05 01:26 | disposition expired | DRG 951 ==
LOC: 2ANU 11:50
PROVIDERS: ADMIT Internal Medicine Hospice and Palliative Medicine; ATTEND Internal Medicine Hospice and Palliative Medicine